=== PATIENT | female | born 1985 | race Caucasian/White ===

== ENCOUNTER 2024-06-11 10:46 | Outpatient (AMB) | payer OTHER, SELFPAY ==
--- NOTE | 2024-06-11 10:48 | A.OFFPC_ITS ---
Vital Signs 06/11/24 11:01 Height 5 ft 5.35 in Weight 195 lb BMI 32.1 BP 104/68 Blood Pressure Location Rt brachial Position Sitting Respiration 14 Pulse 84 Pulse Source Pulse Oximeter Temp 98.4 F Temp Source Oral Pulse Oximetry (%) 98 Oxygen Delivery Method Room Air Intake Visit Reasons: Est care/ med refill Intake Note: New patient visit Entry Level Programmer Required: No Allergies Sulfa (Sulfonamide Antibiotics) Allergy (Unknown, Verified 06/11/24 10:53) Hives Tobacco use date assessed: 06/11/24 Dental Screening Dental Screen Date: 06/11/24 Did you have a dental visit in the last 12 months?: Yes Did you have a dental problem in the last 6 months where you did not have access to dental care?: No Was dental information given to patient?: Patient declined HPI HPI Comments History of Present Illness Details This is a 39-year-old female with a past medical history of anxiety, ADHD, endometriosis, skin cancer and iron-deficiency anemia presenting to [facility] care. Patient is in the , and she has not had a civilian primary care provider for many years. She relocated here with her 2 children and in January of this year from the . Her mother lives in [place]. Anxiety is treated with 10 mg of Lexapro. This was started when she was in the . She was having panic attacks. She has some occasionally now. She says they were concerned she may also have ADHD, but she was not put on stimulants because she was experiencing heart palpitations. She ended up seeing a inspector filters and had what sounds like extensive testing including a monitoring coordinator and a cardiac MRI. She was told there was some premature beats, but otherwise she was okay. She ended up changing how she 8, and her palpitations pretty much resolved. Once the palpitations resolved they were thinking about tapering off Lexapro and starting medication for ADHD, but she is not sure she wants to stop Lexapro. Denies depression. She takes iron every other day. She will get her flu vaccine with her kids. Her Tdap vaccine is up-to-date given during , and her daughter is 8 years old. She is frustrated by her weight. Admits that her diet needs work. She may want to see a dietitian. No known history of thyroid issues. She is exercising. She is not interested in weight loss medication. Patient had skin cancer removed from her right leg. She says it was not melanoma, but she has a strong family history of melanoma. She does not remember if it was a BCC or SCC. She needs a referral to Dermatology. ROS: Constitutional: No unexplained weight loss, fever, chills, fatigue or night sweats. Eyes: No vision changes, blurry vision, double vision, eye pain, eye redness, eye discharge. ENT: No hearing loss, sneezing, congestion, runny nose or sore throat. Respiratory: No shortness of breath, cough or sputum production. Cardiovascular: No chest pain, chest pressure or chest discomfort. No palpitations or pedal edema. Gastrointestinal: No anorexia, nausea, vomiting or diarrhea. No abdominal pain or blood in stool. Genitourinary: No dysuria, hematuria, urinary frequency. Neurologic: No headache, dizziness, syncope, unilateral weakness, ataxia, numbness or tingling in the extremities. Musculoskeletal: No muscle pain, back pain, joint pain or swelling. Hematologic/Lymphatics: No bleeding or bruising. No painful lymph nodes. Skin: No rash or itching. Endocrine: No cold or heat intolerance. No polyuria or polydipsia. Psychiatric: see HPI Physical exam: Constitutional: Alert, in no distress. Head: Normocephalic. Eyes: Pupils are equal, round and reactive to light. Extraocular muscles intact. Ear, Nose and Throat: Canals clear. TMs normal. Normal nasal mucosa. No nasal discharge. No oral lesions. Neck: Supple, Full range of motion. No lymphadenopathy. No palpable thyroid masses. Respiratory: Clear to auscultation. Cardiovascular: S1 S2 regular. No murmurs. Gastrointestinal: Abdomen soft, non-tender, non-distended. Normal bowel sounds. No palpable masses. Neurologic: No focal neurological deficits. Symmetric patellar reflexes. Moves all extremities spontaneously. Sensation intact bilaterally. Skin: No rashes .. Musculoskeletal: No gross deformities. Normal range of motion. Extremities: Warm and well perfused. No clubbing, cyanosis or edema. 3+ peripheral pulses bilaterally. Psychiatric: Normal mood and affect [facility] Medical History (Updated 06/11/24 @ 11:44 by SILVIANO Velásquez) Iron deficiency Family history of melanoma Anxiety Endometriosis Cancer of skin of right leg Heart palpitations ADHD Surgical History (Updated 06/11/24 @ 11:40 by SILVIANO Velásquez) [place] teeth removed H/O removal of cyst Family History (Updated 06/11/24 @ 10:57 by Candie An CMA) Mother ADHD Anxiety Skin cancer Maternal Aunt Skin cancer Father Type 2 diabetes mellitus Gout Other FH: mental illness Social History Housing: House Patient Tobacco Use Status: Never used Tobacco e-Cigarette/Vaping Use: Never Used Second Hand Smoke Exposure: No service: No Current occupational status: employed 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 1. Little interest or pleasure in doing things: not at all 2. Feeling down, depressed, or hopeless: not at all 3. Trouble falling or staying asleep, or sleeping too much: not at all 4. Feeling tired or having little energy: several days 5. Poor appetite or overeating: not at all 6. Feeling bad about yourself - or that you are a failure or have let yourself or your family down: not at all 7. Trouble concentrating on things, such as reading the newspaper or watching television: not at all 8. Moving or speaking so slowly that other people could have noticed. Or the opposite - being so fidgety or restless that you have been moving around a lot more than usual: not at all 9. Thoughts that you would be better off or of hurting yourself in some way: not at all Total score: 1 Depression Screening Interpretation: Negative Depression Screening Done: Yes Source: Developed by Drs. Chato Gonzales, Nkechi Valente, Garrett Paredes and colleagues, with an educational deny from [employer]. Thrive Questionnaire Date Thrive assessed: 06/11/24 I am a: Patient What is your living situation today?: I have a steady place to live Within the past 12 months, did the food you bought not last and you didn't have the money to get more?: Never true Within the past 12 months, did you worry whether your food would run out before you got money to buy more?: Never true Do you have trouble paying for medicines?: No Do you have trouble getting transportation to medical appointments?: No Do you have trouble paying your heating and electricity bill?: No Do you have trouble taking care of your child, family member or friend?: No Do you have trouble with day-to-day activities such as bathing, preparing meals, shopping, managing finances, etc.?: No Are you currently unemployed and looking for a job?: No Are you interested in more education?: No Please select the resources that you would like help with: None Currently or been in a relationship where the following occur: No concerns reported THRIVE Score: 0 AUDIT C Alcohol Use Questionnaire (AUDIT-C) 1. How often do you have a drink containing alcohol?: Monthly or less 2. How many drinks containing alcohol do you have on a typical day when you are drinking?: 1 or 2 3. How often do you have six or more drinks on one occasion?: Never Total Score: 1 JESSI-7 AMB Questionnaire JESSI-7 Feeling nervous, anxious, or on edge: 0 = Not at all Not being able to stop or control worryin = Not at all Worrying too much about different things: 0 = Not at all Trouble relaxin = Not at all Being so restless that it is hard to sit still: 0 = Not at all Feeling afraid as if something awful might happen: 0 = Not at all Source: Developed by Drs. Chato Gonzales, Nkechi Valente, Garrett Paredes and colleagues, with an educational deny from [employer]. Physical exam (Primary Care) Vital Signs: Last Vital Signs Temp 98.4 F 06/11/24 11:01 Pulse 84 06/11/24 11:01 Resp 14 06/11/24 11:01 BP 104/68 06/11/24 11:01 Pulse Ox 98 06/11/24 11:01 Oxygen Delivery Method Room Air 06/11/24 11:01 BMI result Body Mass Index 32.1 Tobacco/Smoking Status: Tobacco use Status Tobacco use date assessed 06/11/24 06/11/24 10:50 Patient Tobacco Use Status Never used Tobacco 06/11/24 10:50 e-Cigarette/Vaping Use Never Used 06/11/24 10:50 PHQ-9: PHQ-9 Score PHQ-9: Total score 1 06/11/24 11:32 Depression Screening Interpretation: Negative Thrive Assessment: Date of Thrive Assessment Date Thrive assessed 06/11/24 06/11/24 10:50 Currently or been in a relationship where the following occur: No concerns reported Coding Level of Care Code New Pt Prev Care 18-39yr([id number] Diagnoses Routine physical examination Z00.00 Cancer of skin of right leg C44.702 Anxiety F41.9 ADHD F90.9 Class 1 obesity E66.811 Assessment & Plan Assessment & Plan (1) Routine physical examination: Code(s): Z00.00 - Encounter for general adult medical examination without abnormal findings Plan: Patient is seen today for a routine physical. As part of this visit we reviewed the following issues, which are considered and essential part of preventative health in this age group: - Breast Cancer screening - Annual Dental Office Manager exam - referred - Blood pressure screening - Cholesterol screening - Osteoporosis prevention including calcium/vitamin D intake, weight bearing exercise & smoking cessation - Nutritional and exercise counseling - Counseling of injury prevention including fire prevention, smoke alarms and seat belt usage - Screening for depression - Education about skin cancer - Recommendations about immunizations - Recommendation of an eye exam - Screening for substance abuse (2) Cancer of skin of right leg: Code(s): C44.702 - Unspecified malignant neoplasm of skin of right lower limb, including hip Category: Medical Plan: Refer to dermatology. Patient should have regular skin exams given family history of melanoma and personal history of skin cancer. (3) Anxiety: Code(s): F41.9 - Anxiety disorder, unspecified Category: Medical Plan: Continue Lexapro. Refer to Psychiatry did discuss med management and possibility of treating potential ADHD. (4) ADHD: Code(s): F90.9 - Attention-deficit hyperactivity disorder, unspecified type Category: Medical (5) Class 1 obesity: Code(s): E66.811 - Obesity, class 1 Plan: Lifestyle modifications reviewed. Check TSH. She is interested in dietitian consult but would like labs reviewed prior to referral. Plan Follow up to be determined based on results. Orders: Orders Lipid Panel Today E78.5 - Hyperlipidemia, unspecified, F41.9 - Anxiety disorder, unspecified, F90.9 - Attention-deficit hyperactivity disorder, unspecified type, Z13.6 - Encounter for screening for cardiovascular disorders Comprehensive Met. Panel Today F41.9 - Anxiety disorder, unspecified, F90.9 - Attention-deficit hyperactivity disorder, unspecified type, Z13.6 - Encounter for screening for cardiovascular disorders Complete Blood Count no Diff Today F41.9 - Anxiety disorder, unspecified, F90.9 - Attention-deficit hyperactivity disorder, unspecified type, Z13.6 - Encounter for screening for cardiovascular disorders TSH reflex Free T4 Today F41.9 - Anxiety disorder, unspecified, F90.9 - Attention-deficit hyperactivity disorder, unspecified type, Z13.6 - Encounter for screening for cardiovascular disorders IRON PROFILE Today E61.1 - Iron deficiency Ferritin Today E61.1 - Iron deficiency Referrals Dermatology Referral C44.702 - Unspecified malignant neoplasm of skin of right lower limb, including hip, Z80.8 - Family history of malignant neoplasm of other organs or systems Psychiatry Referral F41.9 - Anxiety disorder, unspecified, F90.9 - Attention- deficit hyperactivity disorder, unspecified type 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
[2024-06-11 11:01] VITALS: BP 104/68; PULSE 84; RESP 14; TEMP 36.9; O2SAT 98; BMI 32.1
== END 2024-06-11 11:59 | disposition home or self-care (01) ==
PROVIDERS: PCP Physician Assistant Medical; Visit Provider Physician Assistant Medical
DX: Z00.00 Encounter for general adult medical examination without abnormal findings (principal); C44.702 Unspecified malignant neoplasm of skin of right lower limb, including hip; E66.811 Obesity, class 1; Z68.32 Body mass index [BMI] 32.0-32.9, adult; F41.9 Anxiety disorder, unspecified; F90.9 Attention-deficit hyperactivity disorder, unspecified type

== ENCOUNTER → 2024-06-11 10:46 | Outpatient (BNVA) | payer OTHER, SELFPAY | PROVIDERS: PCP Physician Assistant Medical; Visit Provider Physician Assistant Medical ==

== ENCOUNTER 2025-03-20 08:34 | Outpatient (AMB) | payer OTHER, SELFPAY ==
--- OUTSIDE RECORDS SUMMARY | 2025-03-20 08:46 | XMS_ITS | Continuity of Care Document ---
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 It does not include entries that were removed or entered in error. Problem Status Onset Date Problem Type Date of Resolution Comments Source Other viral diseases complicating , unspecified trimester Inactive 05/25/20 16 Condition DoD NORMAL ROUTINE HISTORY AND PHYSICAL - Inactive 01/04/20 13 Condition DoD Outpatient Physician Consultation Inactive 06/05/20 12 Condition DoD SKIN NEOPLASM UNCERTAIN BEHAVIOR Inactive 03/23/20 11 Condition DoD visit for: contraceptive surveillance pill Inactive 02/09/20 06 Condition DoD Patient Education - Proper Use Of Medications Inactive 01/26/[address] MOYA TO ADVISE DoD Palpitations Active 08/19/18 99 Condition DoD Anemia Active Condition 0633C-48t h [facility] Anxiety Active Condition 0633C-48t h [facility] Bicornuate uterus Active Condition 0633 C-48t h [facility] Genital herpes simplex Active Condition 0633C-48t h [facility] Bicornate uterus Active Condition DoD 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 Condition DoD anxiety Active Condition DoD HEMORRHOIDS INTERNAL Active Condition DoD HERPES SIMPLEX Inactive Condition DoD ANEMIA Active Condition DoD PREG COMPLICATIONS: ANTEPARTUM COND OR PRIOR COMP DELIVERY Inactive Condition DoD COMPLICATIONS: ANEMIA Active Condition DoD DECR MOVE AFFECTING CARE OF MOTHER - ANTEPARTUM CONDIT Inactive Condition DoD MATERNAL CONDITION AFFECTING FETUS / Active Condition DoD CONGENITAL UTERINE ABNORMALITY (OBSTETRIC) - ANTEPARTUM COND Active Condition DoD DYSMENORRHEA Active Condition DoD CONGENITAL ABNORMALITY OF UTERUS BICORNUATE PARTIAL Active Condition DoD visit for: administrative purpose Inactive Condition DoD FEMALE INFERTILITY Active Condition DoD WARTS PLANTAR Active Condition DoD Inquiry And Counseling: Contraceptive Practices Active Condition DoD ROUTINE GYNECOLOGICAL EXAM WITH CERVICAL PAP SMEAR Inactive Condition DoD Cervix Sample Taken For Pap Smear Active Condition DoD visit for: screening exam venereal disease Inactive Condition DoD Cervical Pap Smear Inactive Condition Do D DYSPAREUNIA Active Condition DoD Laboratory Studies Active Condition S CHEDULED APPT, [facility]/NIRALI GODINEZ [email or web address] 15 min early PBO DoD Medications Combined list of outpatient medications from Department of Defense and Veterans Affairs facilities.Medications provided include 1) outpatient medications from the last 15 months, and 2) patient-reported medications. Medication Details Route Status Patient Instructions Prescription Expires Prescription Number Last Dispense Date Ordering Provider Order Date Order Qty Source escitalopra m 10 mg oral tablet 1 tab(s), Oral, Daily, # 90 tab(s), 1 total refill(s ), Maintena nce, Pharmacy : [facility] Oral (given by mouth) Ordered 4 2023 90.0 0633C-4 8th [facility] escitalopra m 10 mg tablet See dose instruct ions in comments , # 120 EA, 1 total refill(s ), Acute Complet ed 11/23/2023 3 2023 120.0 Ambulat ory Pharmac y ferrous sulfate (iron sulfate) Oral, 0 total refill(s ), Maintena nce Oral (given by mouth) Ordered 2023 0633C-4 8th [facility] ketoconazol e 2% topical cream RUB GENTLY INTO THE AFFECTED AREA(S) OF RASH 2 TIMES PER DAY UNTIL RESOLVED , # 30 g, 2 total refill(s ), Acute Complet ed 09/19/2023 3 2023 30.0 Ambulat ory Pharmac y Multivitami n oral gum 0 total refill(s ), Maintena nce Ordered 2023 0633C-4 8th [facility] Allergies, Adverse Reactions, Alerts Combined list of allergies from Department of Defense and Veterans Affairs facilities. It does not include entries that were removed or entered in error. Substance Category Reaction Severity Reaction type Status Date Reported Comments Source sulfa drugs Propensity to adverse reactions to drug Unknown Active 6 HIVES Unknown Organization [facility] Drug allergy (disorder) Unknown active 6 [facility] Immunizations Combined list of available immunizations from the Department of Defense and Veterans Affairs facilities. 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 Source influenza virus vaccine, inactivated 2022 ELIAS Beltre lucas, left (delt oid) [id number] 150 Seqirus, A Goodybag complet ed influenza virus vaccine, inactivat ed 06/29/23 Given 0633C-4 8th [facility] influenza, injectable, quadrivalent- pf 2021 zzLef t Arm [id number] 150 GlaxoSmithKli ne complet ed influenza , injectabl e, quadrival ent-pf 06/25/22 Given Ambulat ory Pharmac y Influenza, injectable, quadrivalent, preservative free 1 2021 Unknown, Provider [id number] 150 SmithKline (SKB) complet ed Influenza , injectabl e, quadrival ent, preservat erwin free DoD influenza, injectable, quadrivalent- pf 2021 griseldazSukh Arm [id number] 150 GlaxoSmithKli ne complet ed influenza , injectabl e, quadrival ent-pf 11/16/21 Given Ambulat ory Pharmac y Influenza, injectable, quadrivalent, preservative free 1 2021 Unknown, Provider [id number] 150 SmithKline (SKB) complet ed Influenza , injectabl e, quadrival ent, preservat erwin free DoD COVID-19, mRNA, LNP-S, PF, 30 mcg/0.3 mL dose 2020 [employer] [place] (PFR) Not Given COVID-19, mRNA, LNP-S, PF, 30 mcg/0.3 mL dose DoD COVID-19, mRNA, LNP-S, PF, 30 mcg/0.3 mL dose 2020 ALAN, () Not Given COVID-19, mRNA, LNP-S, PF, 30 mcg/0.3 mL dose DoD influenza, seasonal, injectable-pf 2015 zzLef t Arm [id number] 140 Seqirus complet ed influenza , seasonal, injectabl e-pf 05/31/16 Given Ambulat ory Pharmac y Influenza, seasonal, injectable, preservative free 1 2015 Unknown, Provider [id number] 140 Seqirus (SEQ) complet ed Influenza , seasonal, injectabl e, preservat erwin free DoD tetanus, diphtheria, acellular pertu is 2015 Michaela ht Arm [id number] 115 [facility] ed tetanus, diphtheri a, acellular pertussis 04/27/16 Given Ambulat ory Pharmac y tetanus toxoid, reduced diphtheria toxoid, and acellular pertu is vaccine, adsorbed 1 2015 Unknown, Provider [id number] 115 [facility] (SKB) complet ed tetanus toxoid, reduced diphtheri a toxoid, and acellular pertussis vaccine, adsorbed DoD hepatitis B pediatric/ado lescent 2000 [id number] 08 Merck & Company Inc complet ed hepatitis B pediatric /adolesce nt 10/11/00 Given Ambulat ory Pharmac y hepatitis B vaccine, pediatric or pediatric/ado lescent dosage 3 2000 Unknown, Provider [id number] 08 Merck (MSD) complet ed hepatitis B vaccine, pediatric or pediatric /adolesce nt dosage DoD hepatitis B pediatric/ado lescent 1999 [id number] 08 [employer]ck & Company Inc complet ed hepatitis B pediatric /adolesce nt 05/12/00 Given Ambulat ory Pharmac y hepatitis B vaccine, pediatric or pediatric/ado lescent dosage 2 1999 Unknown, Provider [id number] 08 Merck (MSD) complet ed hepatitis B vaccine, pediatric or pediatric /adolesce nt dosage DoD hepatitis B pediatric/ado lescent 1999 [id number] 08 [employer]ck & Company Inc complet ed hepatitis B pediatric /adolesce nt 04/01/00 Given Ambulat ory Pharmac y tetanus-dipht h toxoids (Td) adult/adol 1999 [id number] 09 [facility] complet ed tetanus-d iphth toxoids (Td) adult/ado l 04/01/00 Given Ambulat ory Pharmac y hepatitis B vaccine, pediatric or pediatric/ado lescent dosage 1 1999 Unknown, Provider [id number] 08 Merck (MSD) complet ed hepatitis B vaccine, pediatric or pediatric /adolesce nt dosage DoD tetanus and diphtheria toxoids, adsorbed, preservative free, for adult use (2 Lf of tetanus toxoid and 2 Lf of diphtheria toxoid) 1 1999 Unknown, Provider [id number] 09 Gregoria (GUILLE) [facility] ed tetanus and diphtheri a toxoids, adsorbed, preservat erwin free, for adult use (2 Lf of tetanus toxoid and 2 Lf of diphtheri a toxoid) DoD Results Combined list of recent chemistry, hematology and other laboratory results from Department of Defense and Veterans Affairs, ranging from 15 months to all on record, depending upon the facility. Order Name Results Value Reference Range Date Interpretation Specimen Comments Source AP Specimens HPV Genotype 16 Negative 3 (11/08/22 4:48 AM) 11/08 N Interpretiv e Data: HPV GENOTYPE 16 Negative: NEGATIVE for HPV DNA genotype 16 DNA. HPV GENOTYPE 16 Positive: POSITIVE for HPV genotype 16 DNA. Limitations : A negative result does NOT preclude the presence of HPV infection because results depend on adequate specimen collection, absence of inhibitors and sufficient DNA to be detected. Correlation with cytologic findings is recommended as applicable. Questions about process or methodology contact Molecular Department at or [phone]. Unknown Organizat ion AP Specimens HPV Genotype 18 Negative 1 (11/08/22 4:48 AM) 11/08 N Interpretiv e Data: HPV GENOTYPE 18 Negative: NEGATIVE for HPV genotype 18 DNA. HPV GENOTYPE 18 Positive: POSITIVE for HPV genotype 18 DNA. Limitations : A negative result does NOT preclude the presence of HPV infection because results depend on adequate specimen collection, absence of inhibitors and sufficient DNA to be detected. Correlation with cytologic findings is recommended as applicable. Questions about process or methodology contact Molecular Department at [phone] or [phone]. Unknown Organizat ion AP Specimens HPV Typing High Risk Negative 2 (11/08/22 4:48 AM) 11/08 N Interpretiv e Data: HPV Typing High Risk Negative: NEGATIVE for concurrentl y detecting the rest of the 12 high risk types HPV DNA (31,33,35,3 9,45,51,52, 56,58,59,66 and 68) without differentia tion. HPV Typing High Risk Positive: POSITIVE for concurrentl y detecting the rest of the 12 high risk types HPV DNA (31,33,35,3 9,45,51,52, 56,58,59,66 and 68) without differentia tion. Limitations : A negative result does NOT preclude the presence of HPV infection because results depend on adequate specimen collection, absence of inhibitors and sufficient DNA to be detected. Correlation with cytologic findings is recommended as applicable. Questions about process or methodology contact Molecular Department at or [phone]. 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 [id number] 30 Cytology Gynecolo gic Report Patient: DAHIANA PEPPER Specimen #: [id number] [facility] ID:: [id number] [facility]: [id number] Taken: 3 19:00 /Age: 8 1985 (Age: 37) Received : 3 08:46 Physicia n(s:): SONALI Melendez Reported : 3 Specimen (s) Received Taken Rec Thin Prep - Cervical w/o reflex HPV 3 19:00 3 08:46 Final Diagnosi s Thin Prep - Cervical w/o reflex HPV: Satisfac tory for evaluati on; endocerv ical componen t present. Negative for intraepi thelial lesion or malignan cy. This Pap test was evaluate d with the assistan ce of the Thin Prep Imaging System. Elect ronicall y Signed by Russell Kim Clinical Diagnosi s and History DMIS-ID: [id number] Ordering Provider : SONALI BARBA Prior History Signed Out Specimen # Interpre tation 11/22/19 18 [id number] NEGATIVE 05/21/20 14 [id number] NEGATIVE 03/04/20 11 [id number] NEGATIVE 02/15/20 06 [id number] NEGATIVE 05/06/20 04 [id number] NEGATIVE 1 CPT Codes: A; 39027 The Pap test is a screenin g test for precurso rs of squamous cell carcinom a with an irreduci ble false negative rate of around 5%. It is not designed to detect glandula r lesions. A negative test does not ensure that no disease is present. 11/[address] [place] [address] Encounters Combined list of: 1) Encounters from Department of Veterans Affairs facilities going backup to the last 18 months, not all VA inpatient encounters are included; 2) Encounters from the Department of Defense facilities going backup to 280 months. Location Location Details Encounter Type Encounter Number Reason For Visit Attending Provider ADM Date DC Date Status Disposition Source [facility] TELE CONSULT [id number] med reactio n LAM MOYA N 01/24 [facility]) [facility]) TELE CONSULT [id number] MED ISSUES NITA, LAM N 01/25 [employer] [facility]) [facility]) OUTPATIENT [id number] VANGIE Guzman 02/08 Released w/o Limitations [facility] JESS Daniel([facility]) OUTPATIENT [id number] annual pap ROLLY PATEL A 07/10 Released w/o Limitations [facility]) OUTPATIENT [id number] Poss Bone Spur/Pa lnters wart??? GOOD REY 02/12 Released w/o Limitations [employer]([facility]) [employer]([facility]) OUTPATIENT [id number] Pap...W GOOD HALL 02/25 Released w/o Limitations [employer]([facility]) [employer] [facility] [employer]([facility]) OUTPATIENT [id number] f/up cryothe rapy... GOOD Nash 03/23 Released w/o Limitations [employer] [facility]) [employer]([facility]) OUTPATIENT [id number] f/u for wart on foot BENTLEY REYDavid Raza 04/09 Released w/o Limitations [facility]) TELE CONSULT [id number] DERM RESULTS APR 01 GOOD RE[facility] Luz Marina 04/15 [employer] [facility]) OUTPATIENT [id number] f/u freeze wart... [facility] BENTLEY REYDavid Raza 04/20 Released w/o Limitations [employer]([facility] tetrics/G ynecology Cl Eg) OUTPATIENT [id number] Female inferti HAL Singh 05/27 Released w/o Limitations [facility](O bstetri cs/Gyne cology Cl [facility]) [facility](Obs tetrics/G ynecology Cl Eg) TELE CONSULT [id number] pt nds appt to get U/S of Uterus on cycle now STEVE VILLAGRAN 06/09 Referred for Appointment [facility] bstetri cs/Gyne cology Cl [facility]) [facility](Obs tetrics/G ynecology Cl Eg) TELE CONSULT [id number] HAL VILLELA 06/17 [facility](O bstetri cs/Gyne cology Cl Eg) [facility](Obs tetrics/G ynecology Cl Eg) TELE CONSULT [id number] Notes Entered by: MARC PERRIN 11 Jan 2012 0740 ------- ------- ------- ------- -- Reg: Pt. wouldli ke to talk to you about her Procedu re? HAL VILLELA 01/10 [facility](O bstetri cs/Gyne cology Cl [facility]) [facility](Obs tetrics/G ynecology Cl Eg) TELE CONSULT [id number] Notes Entered by: ANDREA HENDERSON 06 Mar 2012 1314 ------- ------- ------- ------- -- pt 2wks..s tarted cycle earlier ..not sure if needs appt... SAWYER KIRKLAND 03/06 [facility](O bstetri cs/Gyne cology Cl Eg) [address] [place] [address] Group(Obs tetrics/G ynecology Cl Eg) OUTPATIENT [id number] Follow up HAL Hunt 04/03 Released w/o Limitations [address] [place] [address] Group(O bstetri cs/Gyne cology Cl Eg) [facility](Obs tetrics/G ynecology Cl Eg) TELE CONSULT [id number] Notes Entered by: LUIS RODRÍGUEZ I 05 Apr 2012 0725 ------- ------- ------- ------- -- pcm kiing/r eqeust appt /positi ve pregnan cy test SAWYER KIRKLAND 04/[address] [place] [address] Group(O bstetri cs/Gyne cology Cl Eg) [address] [place] [address](Obs tetrics/G ynecology Cl Eg) TELE CONSULT [id number] Notes Entered by: Junior MORA 06 Apr 2012 1115 ------- ------- ------- ------- -- obgyn/h cg results SAWYER KIRKLAND 04/[address] [place] [address](O bstetri cs/Gyne cology Cl Eg) [address] [place] [address](Obs tetrics/G ynecology Cl Eg) OUTPATIENT [id number] 10wks noJOSEPHINE Hernandes 05/11 Released w/o Limitations [address] [place] [address](O bstetri cs/Gyne cology Cl Eg) [address] [place] [address] Group(Obs tetrics/G ynecology Cl Eg) TELE CONSULT [id number] Notes Entered by: CHEN HARRISON 05 Jun 2012 1140 ------- ------- ------- ------- -- NETWORK RESULT - OB 06/02 JOSEPHINE HERNANDEZ 06/05 [facility](O bstetri cs/Gyne cology Cl Eg) [facility](Obs tetrics/G ynecology Cl Eg) TELE CONSULT [id number] Notes Entered by: Marely WADE 27 Jun 2012 1445 ------- ------- ------- ------- -- NETWORK RESULTS - OB NOTE 07/03 JOSEPHINE HERNANDEZ 06/27 [facility](O bstetri cs/Gyne cology Cl Eg) [facility](Obs tetrics/G ynecology Cl Eg) OUTPATIENT [id number] 15WKS OB RESCHED GRETEL BROTHERS 06/28 Released w/o Limitations [facility](O bstetri cs/Gyne cology Cl Eg) [facility](Obs tetrics/G ynecology Cl Eg) TELE CONSULT [id number] Notes Entered by: Marely WADE 30 Jun 2012 1245 ------- ------- ------- ------- -- NETWORK RESULTS - OB US 07/03 JOSEPHINE HERNANDEZ 06/30 [facility](O bstetri cs/Gyne cology Cl Eg) [facility](Obs tetrics/G ynecology Cl Eg) OUTPATIENT [id number] 18wk cx FARSHAD Aviles 07/12 Released w/o Limitations [facility](O bstetri cs/Gyne cology Cl Eg) [facility](Obs tetrics/G ynecology Cl Eg) TELE CONSULT [id number] Notes Entered by: CHEN HARRISON 26 Jul 2012 1106 ------- ------- ------- ------- -- NETWORK RESULT - OB 07/03 JOSEPHINE HERNANDEZ 07/26 [facility](O bstetri cs/Gyne cology Cl Eg) [facility](Obs tetrics/G ynecology Cl Eg) OUTPATIENT [id number] 21WKS HR OB APPT-CE RVICAL LENGTH PER LING PICHARDO 08/03 Released w/o Limitations [facility](O bstetri cs/Gyne cology Cl Eg) [facility]/ [facility]) TELE CONSULT [id number] Notes Entered by: PER HEDRICK 30 Aug 2012 1548 ------- ------- ------- ------- -- Decreas ed ROSALVA Diaz 08/30 [facility](O b/[facility]) [facility](Obs tetrics/G ynecology Cl Eg) TELE CONSULT [id number] Notes Entered by: CHEN HARRISON 31 Aug 2012 0716 ------- ------- ------- ------- -- NETWORK RESULT - OB 08/02 JOSEPHINE HERNANDEZ 08/31 [facility](O bstetri cs/Gyne cology Cl Eg) [facility](Obs tetrics/G ynecology Cl Eg) OUTPATIENT [id number] 24WKS HR OB APPT EMA ERWIN 08/31 Released w/o Limitations [facility](O bstetri cs/Gyne cology Cl Eg) [facility](Obs tetrics/G ynecology Cl Eg) OUTPATIENT [id number] 28 wks COB EMA ERWIN 09/21 Released w/o Limitations [facility](O bstetri cs/Gyne cology Cl Eg) [facility](Obs tetrics/G ynecology Cl Eg) TELE CONSULT [id number] Notes Entered by: CHEN HARRISON 03 Oct 2012 0751 ------- ------- ------- ------- -- NETWORK RESULT - OB 10/04 JOSEPHINE HERNANDEZ 10/03 [facility](O bstetri cs/Gyne cology Cl Eg) [facility](Obs tetrics/G ynecology Cl Eg) OUTPATIENT [id number] 32WKS HR OB APPT EMA ERWIN 10/12 Released w/o Limitations [employer] [facility](O bstetri cs/Gyne cology Cl Eg) [facility] yesi Residency Hot) TELE CONSULT [id number] Notes Entered by: JOY BABCOCKVINCE SNOW Kacie 17 Oct 2012 1322 ------- ------- ------- ------- -- ABRAHAM Coppola 10/17 [facility](F amily Residen cy Hot) [facility](Obs tetrics/G ynecology Cl Eg) OUTPATIENT [id number] 36WKS HROB PER CHANA GALAVIZ 11/16 Released w/o Limitations [facility](O bstetri cs/Gyne cology Cl Eg) [facility] DIRECT TO [facility] FROM OTHER THAN ER OR [facility]U [id number] ROSALVA PONCE 11/21 DISCHARGED HOME [facility](Obs tetrics/G ynecology Cl Eg) OUTPATIENT [id number] 6 WKS PP..LEENA GALICIA GRETEL Kacie 01/03 Released w/o Limitations [facility](O bstetri cs/Gyne cology Cl Eg) [facility] yesi Residency [facility]) TELE CONSULT [id number] Notes Entered by: MARYLOU MONAHAN 09 Apr 2014 1035 ------- ------- ------- ------- -- CARRIE CHE 04/09 Referred for Appointment [facility](F amily Residen [facility]) [employer] [facility] [employer](Fam yesi Residency [facility]) OUTPATIENT [id number] PETE OSWALD 04/18 Released w/o Limitations [employer](F amily Residen cy [facility]) [employer]([facility] yesi Residency [facility]) TELE CONSULT [id number] Notes Entered by: Al BENSON 29 Apr 2014 0919 ------- ------- ------- ------- -- LAB RESULTS PETE CLARK 04/29 [facility]) [facility]) OUTPATIENT [id number] f/u PETE CLARK 05/14 Released w/o Limitations [facility]) TELE CONSULT [id number] Notes Entered by: PETE CLARK 23 May 2014 1024 ------- ------- ------- ------- -- Cervica l Cancer Screeni ng Results PETE CLARK 05/23 [facility]) [facility]) TELE CONSULT [id number] 3 Notes Entered by: JUDE CLARK 31 May 2014 1329 ------- ------- ------- ------- -- referal EFRAÍN CHU 05/31 [facility]) [facility]) OUTPATIENT [id number] cough/c hest congest JESSICA Aceves 11/18 Released w/o Limitations [facility]) [facility]) OUTPATIENT [id number] PCM EATON - EAR PAIN LYNN GILMORE 12/02 Released w/o Limitations [facility]) [facility]) OUTPATIENT [id number] KRYSTINA DON 12/24 Released w/o Limitations [facility](F [facility]) [facility](Phy sical Therapy 0024) OUTPATIENT [id number] lummarjango FARSHAD LARA 01/02 Released w/o Limitations [facility](P hysical Therapy 0024) [address] [place] [address](Phy sical Therapy 0024) OUTPATIENT [id number] CHI JARAMILLO Marely 01/06 Released w/o Limitations [facility](P hysical Therapy 0024) [address] [place] [address](Phy sical Therapy 0024) OUTPATIENT [id number] CELIA MENDOZA Junior 01/09 Released w/o Limitations [address] [place] [address](P hysical Therapy 0024) [address] [place] [address]([facility]) OUTPATIENT [id number] back pain LING SANTIAGO 04/16 Released w/o Limitations [address] [place] [address]([facility]) [address] [place] [address]([facility]) TELE CONSULT [id number] Notes Entered by: SILVERIO CHISHOLM 16 Apr 2015 1032 ------- ------- ------- ------- -- Possibl e cyst LING SANTIAGO 04/[address] [place] [address]([facility]) [address] [place] [address]([facility]) TELE CONSULT [id number] Notes Entered by: Alek JARAMILLO 18 Apr 2015 0950 ------- ------- ------- ------- -- BACK STILL HURTS/P CM: Sharon ALMANZAR ALEXANDER C 04/18 [facility]) [address] [place] [address]([facility]) OUTPATIENT [id number] follow up back pain CANDIDA BOWDEN 04/29 Released w/o Limitations [address] [place] [address]([facility]) [address] [place] [address]([facility]) OUTPATIENT [id number] F/U BACK, ABDOMIN AL PAIN, TENDERN ESS AND CRAMPS. SUPPOSE TO HAVE SCRAPPI NG. EFRAÍN ALMANZAR 05/20 Released w/o Limitations [address] [place] [address]([facility]) [address] [place] [address](Obs tetrics/G ynecology Cl Eg) OUTPATIENT [id number] OVARIAN CYST COMPLEX LEFT SHANK NICOLE FREY 06/20 [facility]ased w/o Limitations [facility] bstetri cs/Gyne cology Cl [facility]) [facility]) TELE CONSULT [id number] Notes Entered by: WOLF MEDRANO 26 Jun 2015 0928 ------- ------- ------- ------- -- F/u U/S CANDIDA BOWDEN 06/26 [facility]) [facility]) OUTPATIENT [id number] f/u for back and stomach EFRAÍN ALMANZAR 06/27 Released w/o Limitations [facility]) [facility](Obs tetrics/G ynecology Cl Eg) OUTPATIENT [id number] F/U Ovarian Cyst NICOLE CHAPARRO 07/03 Released w/o Limitations [facility] bstetri cs/Gyne cology [facility]) [facility]) OUTPATIENT [id number] fu appt/lo w back pain RODRIGUEZLIZETTE BABCOCK James 10/15 Released w/o Limitations [facility]) [facility]) TELE CONSULT [id number] Notes Entered by: SILVERIO CHISHOLM 20 Oct 2015 1338 ------- ------- ------- ------- -- Pregnan cy test LUIS ROBIN Referred- [facility] Department [facility]) [facility](Obs tetrics/G ynecology Cl Eg) TELE CONSULT [id number] Notes Entered by: STEVE VILLAGRAN 22 Oct 2015 0951 ------- ------- ------- ------- -- Lab results STEVE VILLAGRAN 10/21 Other Not Elsewhere Classified [facility](O bstetri cs/Gyne cology Cl Eg) [employer](Obs tetrics/G ynecology Cl Eg) OUTPATIENT [id number] viabili ty scan, f/u ER visit 5weeks NICOLE CHAPARRO 10/28 Released w/o Limitations [employer](O bstetri cs/Gyne cology Cl Eg) [employer](Obs tetrics/G ynecology Cl Eg) OUTPATIENT [id number] Notes Entered by: MICHELLE ELAM 13 Nov 2015 1350 ------- ------- ------- ------- -- nurse intake ROCIO HOYT 11/12 Released w/o Limitations [employer](O bstetri cs/Gyne cology Cl Eg) [employer](Obs tetrics/G ynecology Cl Eg) TELE CONSULT [id number] Notes Entered by: PARVEZ HOYT 24 Nov 2015 1615 ------- ------- ------- ------- -- NOB Nurse intake follow- up ROCIO HOYT 11/23 Released w/o Limitations [employer](O bstetri cs/Gyne cology Cl Eg) [employer](Obs tetrics/G ynecology Cl Eg) OUTPATIENT [id number] 10 week..N SAMPSON CARTAGENA 11/26 Released w/o Limitations [employer](O bstetri cs/Gyne cology Cl Eg) [employer](Obs tetrics/G ynecology Cl Eg) OUTPATIENT [id number] WEEKS SAMPSON LINDSEY 01/04 Released w/o Limitations [employer](O bstetri cs/Gyne cology Cl Eg) [employer](Obs tetrics/G ynecology Cl Eg) OUTPATIENT [id number] 20wk JOSEPHINE JOYA 01/28 Released w/o Limitations [employer](O bstetri cs/Gyne cology Cl Eg) [employer](Obs tetrics/G ynecology Cl Eg) OUTPATIENT [id number] 24WKS SAMPSON LINDSEY 02/25 Released w/o Limitations [employer](O bstetri cs/Gyne cology Cl Eg) [facility](Obs tetrics/G ynecology Cl Eg) OUTPATIENT [id number] 28 weeks danielle FRIDAGRETEL Kacie 03/23 Released w/o Limitations [employer](O bstetri cs/Gyne cology Cl Eg) [facility](Obs tetrics/G ynecology Cl Eg) OUTPATIENT [id number] 32 WEEKS DANIELLE SCHMIDT FRANCO K 04/27 Released w/o Limitations [employer](O bstetri cs/Gyne cology Cl Eg) [facility](Obs tetrics/G ynecology Cl Eg) TELE CONSULT [id number] Notes Entered by: MAG SHELLY BONNER 27 Apr 2016 1607 ------- ------- ------- ------- -- Radiolo gy report HEIDI RODRIGUEZ 04/27 [facility] for [facility]ointment [facility] bstetri cs/Gyne cology Cl [facility]) [facility](Obs tetrics/G ynecology Cl Eg) TELE CONSULT [id number] Notes Entered by: Alek TREADWELL 30 Apr 2016 0956 ------- ------- ------- ------- -- NETWORK RESULTS - 05/07 SAMPSON BARRY 04/30 [facility] bstetri cs/Gyne cology Cl [facility]) [facility](Obs tetrics/G ynecology Cl Eg) TELE CONSULT [id number] Notes Entered by: MIKAYLA RAYMOND 30 Apr 2016 1355 ------- ------- ------- ------- -- NST inquiry HEIDI RODRIGUEZ 04/30 [facility] for [facility]ointment [facility] bstetri cs/Gyne cology Cl Eg) [employer](Obs tetrics/G ynecology Cl Eg) OUTPATIENT [id number] 36 weeks ASHTYN COBURN 05/25 Released w/o Limitations [employer](O bstetri cs/Gyne cology Cl Eg) [employer](Obs tetrics/G ynecology Cl Eg) OUTPATIENT [id number] Notes Entered by: MARTI RAPP 25 May 2016 1347 ------- ------- ------- ------- -- rule out pre E THELMA ALEXIS 05/25 Released w/o Limitations [employer] [facility](O bstetri cs/Gyne cology Cl Eg) [facility]) OUTPATIENT [id number] Notes Entered by: MARTI RAPP 26 May 2016 1518 ------- ------- ------- ------- -- BP check FABIAN SPARROW 05/26 Released w/o Limitations [employer](O b/[facility]) [employer](Obs tetrics/G ynecology Cl Eg) OUTPATIENT [id number] walk- in bp CATHERINE DUFFY 05/27 Released w/o Limitations [employer](O bstetri cs/Gyne cology Cl Eg) [facility](Obs tetrics/G ynecology Cl Eg) TELE CONSULT [id number] Notes Entered by: Terell DUFFY 28 May 2016 0817 ------- ------- ------- ------- -- Plan of care CATHERINE DUFFY 05/28 [facility] bstetri cs/Gyne cology Cl [facility]) [facility] DIRECT TO [facility] FROM OTHER THAN ER OR APU [id number] POLI TREVIÑO 05/29 DISCHARGED HOME [facility]) OUTPATIENT [id number] Notes Entered by: Al JARAMILLO 29 May 2016 1418 ------- ------- ------- ------- -- Blood pressur e kelley TERESAENS POLI A 05/29 Released w/o Limitations [employer] [facility](O b/[facility]) [employer](Obs tetrics/G ynecology Cl Eg) TELE CONSULT [id number] Notes Entered by: ART HENDERSON 02 Jun 2016 1413 ------- ------- ------- ------- -- APPT NEEDED- --STEVE JARA 06/02 Referred for Appointment [employer] [facility](O bstetri cs/Gyne cology Cl [facility]) [facility](Obs [facility]s/G ynecology Cl Eg) OUTPATIENT [id number] walk in CATHERINE DUFFY 06/04 Released w/o Limitations [employer](O bstetri cs/Gyne cology Cl Eg) [facility](Obs tetrics/G ynecology Cl Eg) OUTPATIENT [id number] WK PP SAMPSON BARRY 06/10 Released w/o Limitations [employer](O bstetri cs/Gyne cology Cl Eg) [facility](Obs tetrics/G ynecology Cl Eg) TELE CONSULT [id number] Notes Entered by: CRISTIN ERWIN A 18 Jun 2016 1204 ------- ------- ------- ------- -- 6WK PP HARVINDER DELACRUZ 06/18 Other Not Elsewhere Classified [employer] [facility](O bstetri cs/Gyne cology Cl Eg) [employer]([facility]) OUTPATIENT [id number] RASH ON PELVIS/ THIGHS/ BACK MACIE HOLLY 06/21 Released w/o Limitations [employer]([facility]) [employer](Obs tetrics/G ynecology [facility]) OUTPATIENT [id number] 6 weeks PP JHONNYSAMPSON VICTOR CASSI 07/20 Released w/o Limitations [facility](O bstetri cs/Gyne cology [facility]) [facility]) TELE CONSULT [id number] Notes Entered by: Kacie KENDALL 24 Feb 2017 1038 ------- ------- ------- ------- -- EATON / Request ing Renewal of Derm ELLIOTT Ford 02/24 Other Not Elsewhere Classified [facility]) [facility]) TELE CONSULT [id number] Notes Entered by: CHEN HARRISON 21 Mar 2017 0849 ------- ------- ------- ------- -- NETWORK RESULT - DERM 03/07 is in artifac ts and images / HAIMS. RENE SUNSHINE 03/21 [facility]) [facility]) OUTPATIENT [id number] WELL WOMEN/P AP/PHYS ICAL (BACK PAIN and TOENAIL ISSUES) EFRAÍN ALMANZAR 11/11 Released w/o Limitations [facility]) [facility]) TELE CONSULT [id number] Notes Entered by: Sharon ALMANZAR 14 Nov 2017 1826 ------- ------- ------- ------- -- acupunc ture appt EFRAÍN ALMANZAR 11/14 [facility]) [facility]) OUTPATIENT [id number] [facility] MAGI MULLIGAN 11/29 Released w/o Limitations [facility]) [facility]) TELE CONSULT [id number] Notes Entered by: Sharon ALMANZAR 06 Dec 2017 0755 ------- ------- ------- ------- -- F/U PAP and HPV results VERÓNICA CRAWFORD 12/06 [facility]) [facility]) TELE CONSULT [id number] Notes Entered by: Sharon ALMANZAR 12 Dec 2017 1113 ------- ------- ------- ------- -- Nail clip path EFRAÍN ALMANZAR 12/12 [facility]) [facility]) OUTPATIENT [id number] ACUPUNC TURE: anxiety and LBP TUNDE GRECO 12/26 Released w/o Limitations [facility]) [address] [place] [address]([facility]) TELE CONSULT [id number] Notes Entered by: CHEN HARRISON 27 Dec 2017 1330 ------- ------- ------- ------- -- NETWORK RESULT - [facility] 01[place]06 [place] EFRAÍN ALMANZAR 12/27 [facility]) [facility]) TELE CONSULT [id number] Notes Entered by: Sharon ALMANZAR 27 Dec 2017 1338 ------- ------- ------- ------- -- F/U nail Cx results JACQUELINE KRISHNAMURTHY 12/27 Referred for [facility]ointment [facility]) [address] [place] [address]([facility]) TELE CONSULT [id number] Notes Entered by: CHEN HARRISON 01 Feb 2018 1232 ------- ------- ------- ------- -- NETWORK RESULT - [facility] 02/06 [place] SHERI KASPER 02/01 [facility]) [facility]) TELE CONSULT [id number] Notes Entered by: FRANCO HUTTON 10 Nov 2018 1500 ------- ------- ------- ------- -- REFERREYNOLD PATEL 11/10 Other Not Elsewhere Classified [facility]) [facility]) OUTPATIENT [id number] STIVEN GARIBAY 04/13 Released w/o Limitations [facility]) TELE CONSULT [id number] Notes Entered by: FRANCO HUTTON 04 May 2019 0757 ------- ------- ------- ------- -- TRIAGE: LAB REBARBARA JONES 05/04 [facility] for [facility]ointment [facility]) TELE CONSULT [id number] Notes Entered by: STIVEN UGARTE 06 May 2019 1026 ------- ------- ------- ------- -- Lab results JACQUELINE KRISHNAMURTHY 05/06 [facility]erred for [facility]ointment [facility]) OUTPATIENT [id number] possibl e sinus infecti on COLE MARROQUIN 10/22 Released w/o Limitations [employer]([facility]) [facility] Group([facility]) TELE CONSULT [id number] Notes Entered by: Luz Marina WONG 17 Jun 2021 1129 ------- ------- ------- ------- -- req SURENDRA Villatoro 06/17 Released to [employer]([facility]) [facility]) TELE CONSULT [id number] Notes Entered by: JESSICA SHANE I 29 Jun 2021 1345 ------- ------- ------- ------- -- PCM: [place] - dermato logy referra SURENDRA Martin 06/29 Referred for Appointment [employer]([facility]) [facility] Group([facility]) OUTPATIENT [id number] 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 STEFANIE SHOOK 08/18 Released w/o Limitations [facility] Medical Group([facility]) [facility]) TELE CONSULT [id number] Notes Entered by: MANDO GUILLEN 01 Sep 2021 0916 ------- ------- ------- ------- -- PCM; [place] - Lab results MARC JOSHI 09/01 [facility] Group([facility]) [facility] Group([facility]) OUTPATIENT [id number] AWE, Labs to be drawn up 1 week prior JOAN SAMAYOA 09/28 Released w/o Limitations [facility] Medical [facility]) [facility] Medical [facility]) TELE CONSULT [id number] Notes Entered by: JOAN SAMAYOA 01 Oct 2021 1358 ------- ------- ------- ------- -- Results MARC JOSHI 10/01 [facility] Medical [facility]) [facility] Medical Group([facility]) OUTPATIENT [id number] Hyperli pidemia , unspeci fied; mercy [email or web address] HUY YOUNG 11/18 Released w/o Limitations [facility] Medical Group([facility]) [facility] Group([facility]) TELE CONSULT [id number] Notes Entered by: MARY ALICE WHITE 16 Feb 2022 0942 ------- ------- ------- ------- -- Network Results - Cardio- [id number] JOAN SAMAYOA 02/16 [employer]([facility]) [facility] TELE CONSULT [id number] Notes Entered by: XIMENA TINSLEY 17 Mar 2022 1010 ------- ------- ------- ------- -- PCM - [place] - Cyst ANDRES SONG 03/17 [facility] Medical Group([facility]) [facility]) TELE CONSULT [id number] Notes Entered by: MARY ALICE WHITE 25 Mar 2022 0716 ------- ------- ------- ------- -- Network Results -Cardio -29Jul2 2 JOAN SAMAYOA 03/25 [facility] Group([facility]) [facility]) TELE CONSULT [id number] Notes Entered by: Terell HORNER 06 Apr 2022 1137 ------- ------- ------- ------- -- PCM- darling - severe headach es and backach es SHAWN CHINCHILLA 04/06 [facility]) [facility]) OUTPATIENT [id number] *ER F/U bruises on back/he adaches and back pain [id number] JOAN SAMAYOA 04/08 Released w/o Limitations [facility]) [facility] Medical [facility]) OUTPATIENT [id number] OMT-Ryley k pain DENITA ZIEGLER R 04/15 Released w/o Limitations [facility] Group([facility]) [employer]([facility]) OUTPATIENT [id number] evaluat ion of STEFANIE Pathak 04/21 Released w/o Limitations [employer]([facility]) [employer]([facility]) TELE CONSULT [id number] Notes Entered by: OSCAR TURNER 27 Apr 2022 0821 ------- ------- ------- ------- -- PCM - [place] referSURENDRA Reyna 04/27 Referred for Appointment [employer]([facility]) [employer]([facility]) OUTPATIENT [id number] F/U OMT DENITA ZIEGLER 05/03 Released w/o Limitations [facility] Group([facility]) [employer]([facility]) TELE CONSULT [id number] Notes Entered by: NETTIE RHODES OD 04 Jun 2022 1039 ------- ------- ------- ------- -- vane request - OMT MARC Russ 06/04 [facility] Group([facility]) [employer]([facility]) TELE CONSULT [id number] Notes Entered by: CHRISTINE MUJICA 07 Jun 2022 1153 ------- ------- ------- ------- -- ALIE - Yohana - MARC Jaramillo 06/07 [employer]([facility]) [employer]([facility]) OUTPATIENT [id number] OMT DENITA ZIEGLER 06/21 Released w/o Limitations [employer]([facility]) [employer]([facility]) TELE CONSULT [id number] Notes Entered by: JULEE GRAVES 13 Jul 2022 0959 ------- ------- ------- ------- -- Cyst Removal STEFANIE SHOOK 07/13 [employer]([facility]) [employer]([facility]) TELE CONSULT [id number] Notes Entered by: DAILLA GANNON 14 Jul 2022 0925 ------- ------- ------- ------- -- PCM- [place] - Retro MARC Jaramillo 07/14 [employer]([facility]) [employer]([facility]) TELE CONSULT [id number] MITA BRUNO 07/19 [employer]([facility]) [employer]([facility]) OUTPATIENT [id number] Cyst STEFANIE SHOOK 07/20 Released w/o Limitations [employer]([facility]) [employer]([facility]) OUTPATIENT [id number] mood medicat ion [id number] JOAN SAMAYOA 07/26 Released w/o Limitations [employer]([facility]) [employer]([facility]) OUTPATIENT [id number] *zolft causing severe side effects - only took one cap- [id number] JOAN SAMAYOA 07/29 Released w/o Limitations [employer]([facility]) [employer]([facility]) OUTPATIENT [id number] Medicat ion F/u JOAN SAMAYOA 08/31 Released w/o Limitations [employer]([facility]) [employer]([facility]) OUTPATIENT [id number] 2 month follow up - STEFANIE Pathak 09/20 Released w/o Limitations [employer]([facility]) [employer]([facility]) TELE CONSULT [id number] Notes Entered by: JOAN SAMAYOA 28 Sep 2022 1244 ------- ------- ------- ------- -- US result GERALDO JOHNSON L 09/28 [employer]([facility]) [employer]([facility]) OUTPATIENT [id number] punch back STEFANIE SHOOK 10/07 Released w/o Limitations [employer]([facility]) [employer]([facility]) OUTPATIENT [id number] Excessi ve and frequen t menstru ation with regular cycle SONALI THOMAS 10/08 Released w/o Limitations [employer]([facility]) [facility] Group([facility]) TELE CONSULT [id number] Notes Entered by: XIMENA TINSLEY 08 Oct 2022 1551 ------- ------- ------- ------- -- Network Results -Osteo- 10-24De c22 GERALDO JOHNSON L 10/08 [employer]([facility]) [employer]([facility]) TELE CONSULT [id number] Notes Entered by: TATE SHOOK 12 Oct 2022 1624 ------- ------- ------- ------- -- tissue results CELIA MOREJON 10/12 [employer]([facility]) [employer]([facility]) OUTPATIENT [id number] Notes Entered by: ANDRES SONG 18 Oct 2022 0727 ------- ------- ------- ------- -- walk-in - suture removal STEFANIE SHOOK 10/18 Released w/o Limitations [employer]([facility]) [employer]([facility]) OUTPATIENT [id number] PAP/COL PO SONALI THOMAS 10/26 Released w/o Limitations [employer]([facility]) [employer]([facility]) TELE CONSULT [id number] Notes Entered by: LIZZETTE WILSON 01 Dec 2022 1450 ------- ------- ------- ------- -- f/u embx and pap smear results SONALI THOMAS 12/01 [employer]([facility]) [employer]([facility]) OUTPATIENT [id number] Medicat ion F/u JOAN SAMAYOA 12/21 Released w/o Limitations [employer]([facility]) [employer]([facility]) TELE CONSULT [id number] CHRISTINE LARIOS 01/10 [employer]([facility]) [employer]([facility]) OUTPATIENT [id number] possibl y adjust anxiety meds JOAN SAMAYOA 01/13 Released w/o Limitations [employer]([facility]) [employer]([facility]) TELE CONSULT [id number] Notes Entered by: DURAN ROBIN 01 Feb 2023 1323 ------- ------- ------- ------- -- PCM; Yohana - blood work check in MARC JOSHI 02/01 [employer]([facility]) [employer]([facility]) OUTPATIENT [id number] Lump/cy st under L arm x2days, getting larger and causing irritat ion JOAN SAMAYOA 02/03 Released w/o Limitations [employer]([facility]) [facility] Group([facility]) OUTPATIENT [id number] BRENDAN MONTES DE OCA 02/14 Released w/o Limitations [facility]) [facility]) OUTPATIENT [id number] Notes Entered by: BRIANNA RODRÍGUEZ 23 Mar 2023 1442 ------- ------- ------- ------- -- MARIO ALBERTO DIAZ 03/23 Released w/o Limitations [facility] [facility]) [employer]([facility]) OUTPATIENT [id number] *Req to discuss recent heart monitor finding s/resul - [id number] JOAN SAMAYOA 03/28 Released w/o Limitations [employer]([facility]) [employer]([facility]) TELE CONSULT [phone] 3 Notes Entered by: XIMENA TINSLEY 15 Apr 2023 1104 ------- ------- ------- ------- -- Network Results -Psych- [id number] RUSSELL DUFFY 04/15 [employer]([facility]) Procedures Combined list of: 1) Procedures from Department of Veterans Affairs facilities going back up to thelast 18 months, not all VA non-surgical procedures are included; 2) All procedures from the Department of Defense facilities. Procedure Procedure Type Code Date Perfomer Comments Sour e No data available for this section Ambulatory Pharmacy Non-Physician Phone Call To Patient/Provider Brief (5-10min) Non-Physician Phone Call To Patient/Provider Brief (5-10min) [id number] 05/07 JACQUELINE KRISHNAMURTHY [facility] Non-Physician Phone Call To Patient/Provider Brief (5-10min) Non-Physician Phone Call To Patient/Provider Brief (5-10min) [id number] 05/04 BARBARA RAGLAND [facility] Non-Physician Phone Call To Patient/Provider Brief (5-10min) Non-Physician Phone Call To Patient/Provider Brief (5-10min) 71505 12/28 JACQUELINE KRISHNAMURTHY [facility] Acupunct One Or More [place] W/O Stimulation Initial 15 Min Acupunct One Or More [place] W/O Stimulation Initial 15 Min [id number] 12/28 WILLOW GRECO [facility] Health And Behavior Intervention, Each 15 Minutes Individual Health And Behavior Intervention, Each 15 Minutes Individual 99623 12/02 MAGI MULLIGAN [facility] Health And Behav A e mt Each 15 Min Initial A e ment Health And Behav Assessmt Each 15 Min Initial Assessment 11789 12/02 MAGI MULLIGAN [facility] Screening papanicolaou smear; obtaining, preparing and conveyance of cervical or vaginal smear to laboratory 11/14 EFRAÍN ALMANZAR [facility] Obstetrical Services Care Visit Obstetrical Services Care Visit 0503F 07/20 SAMPSON BARRY [facility] Non-Physician Phone Call To Patient/Provider Brief (5-10min) Non-Physician Phone Call To Patient/Provider Brief (5-10min) [id number] 06/18 HARVINDER AYALA [facility] Obstetrical Services Care Visit Obstetrical Services Care Visit 0503F 06/10 SAMPSON BARRY [facility] A e ment & Intervention Blood Pre ure Measured Assessment & Intervention Blood Pressure Measured 200006/09 CATHERINE DUFFY Non-Stre Test (___ 0,2) Non-Stress Test (___ 0,2) 67818 06/01 POLI TREVIÑO [facility] OB Services Antepartum Care Only Subsequent Single Visit OB Services Antepartum Care Only Subsequent Single Visit 0502F 05/27 CATHERINE DUFFY OB Services Antepartum Care Only Subsequent Single Visit OB Services Antepartum Care Only Subsequent Single Visit 0502F 05/25 ASHTYN FRENCH [facility] Non-Physician Phone Call To Pt/Provider Intermed (11-20 min) Non-Physician Phone Call To Pt/Provider Intermed (11-20 min) 45010 04/30 HEIDI RODRIGUEZ [facility] Non-Physician Phone Call To Pt/Provider Intermed (11-20 min) Non-Physician Phone Call To Pt/Provider Intermed (11-20 min) [id number] 04/28 HEIDI RODRIGUEZ [facility] OB Services Antepartum Care Only Subsequent Single Visit OB Services Antepartum Care Only Subsequent Single Visit 0502F 04/27 FRANCO SCHMIDT [facility] OB Services Antepartum Care Only Subsequent Single Visit OB Services Antepartum Care Only Subsequent Single Visit 0502F 03/23 GRETEL GALICIA [facility] OB Services Antepartum Care Only Subsequent Single Visit OB Services Antepartum Care Only Subsequent Single Visit 0502F 02/25 JHONNY SAMPSON CASSI [facility] OB Services Antepartum Care Only Subsequent Single Visit OB Services Antepartum Care Only Subsequent Single Visit 0502F 01/28 JOSEPHINE HERNANDEZ [facility] OB Services Antepartum Care Only Subsequent Single Visit OB Services Antepartum Care Only Subsequent Single Visit 0502F 01/04 SAMPSON BARRY [facility] Ultrasound Trans[place] [address] 11/26 SAMPSON BARRY [facility] OB Services Antepartum Care Only First Visit, With Report OB Services Antepartum Care Only First Visit, With Report 0500F 11/26 JHONNY SAMPSONSHELLY YE [facility] Non-Physician Phone Call To Pt/Provider Intermed (11-20 min) Non-Physician Phone Call To Pt/Provider Intermed (11-20 min) 80668 11/23 ROCIO HOYT [facility] Ultrasound Trans[place] [address] 10/28 NICOLE CHAPARRO [facility] Non-Physician Phone Call To Pt/Provider Intermed (11-20 min) Non-Physician Phone Call To Pt/Provider Intermed (11-20 min) 77846 10/21 STEVE VILLAGRAN [facility] Physical Therapy: ___ Se ion Segments, 15 Minutes Each Physical Therapy: ___ Session Segments, 15 Minutes Each 89983 01/09 CELIA MENDOZA [facility] Physical Therapy: ___ Se ion Segments, 15 Minutes Each Physical Therapy: ___ Session Segments, 15 Minutes Each 52708 01/06 CHI JARAMILLO [facility] Modalities Cryotherapy Cold Packs Modalities Cryotherapy Cold Packs 20389 01/03 FARSHAD LARA [facility] Osteopathic Manip Treatment (OMT) 1-2 Body Regions Involved Osteopathic Manip Treatment (OMT) 1-2 Body Regions Involved 22332 01/03 FARSHAD LARA Exercises A isted Exercises For ROM Exercises Assisted Exercises For ROM 63295 01/03 FARSHAD LARA [facility] Physical Medicine Physical Therapy Evaluation Physical Medicine Physical Therapy Evaluation 13288 01/03 FARSHAD LARA Osteopathic Manip Treatment (OMT) 1-2 Body Regions Involved Osteopathic Manip Treatment (OMT) 1-2 Body Regions Involved 59004 12/24 KRYSTINA WEST [facility] Obstetrical Services Care Visit Obstetrical Services Care Visit 0503F 01/03 GRETEL GALICIA [facility] OB Services Antepartum Care Only Subsequent Single Visit OB Services Antepartum Care Only Subsequent Single Visit 0502F 11/16 CESAR CHANA Marely [facility] OB Services Antepartum Care Only Subsequent Single Visit OB Services Antepartum Care Only Subsequent Single Visit 0502F 10/12 RIPEMA CORONEL [facility] OB Services Antepartum Care Only Subsequent Single Visit OB Services Antepartum Care Only Subsequent Single Visit 0502F 09/21 RIP, EMA Kacie [facility] OB Services Antepartum Care Only Subsequent Single Visit OB Services Antepartum Care Only Subsequent Single Visit 0502F 09/04 RIPSADE CORONELBETH Kacie [facility] OB Services Antepartum Care Only Subsequent Single Visit OB Services Antepartum Care Only Subsequent Single Visit 0502F 07/12 STEVE LEW [facility] Ultrasound Trans[place] [address] 07/12 LOUANN STEVE [facility] OB Services Antepartum Care Only Subsequent Single Visit OB Services Antepartum Care Only Subsequent Single Visit 0502F 06/28 CASE, GRETEL Hester [facility] Non-Stre Test (___ 0,2) Non-Stress Test (___ 0,2) 39918 05/11 JOSEPHINE HERNANDEZ [facility] OB Services Antepartum Care Only First Visit, With Report OB Services Antepartum Care Only First Visit, With Report 0500F 05/11 JOSEPHINE HERNANDEZ [facility] Non-Physician Phone Call To Pt/Provider Intermed (11-20 min) Non-Physician Phone Call To Pt/Provider Intermed (11-20 min) 85738 04/06 SAWYER KIRKLAND Non-Physician Phone Call To Pt/Provider Lengthy (21-30 min) Non-Physician Phone Call To Pt/Provider Lengthy (21-30 min) 97195 04/05 SAWYER KIRKLAND Non-Physician Phone Call To Pt/Provider Lengthy (21-30 min) Non-Physician Phone Call To Pt/Provider Lengthy (21-30 min) 83203 03/06 SAWYER KIRKLAND Hysterosalpingography With Catheter Contrast Injection Hysterosalpingography With Catheter Contrast Injection 58922 06/17 HAL VILLELA [facility] Trans-Vaginal Ultrasound Trans-Vaginal Ultrasound 18808 05/27 HAL VILLELA Cervical or vaginal cancer screening; pelvic and clinical breast examination 02/25 GOOD REY [facility] Wet glenn, including preparations of vaginal, cervical or skin specimens 07/16 ROLLY BOYKIN [facility] Screening papanicolaou smear; obtaining, preparing and conveyance of cervical or vaginal smear to laboratory 07/16 ROLLY BOYKIN Non-Physician Phone Call To Pt/Provider Intermed (11-20 min) Non-Physician Phone Call To Pt/Provider Intermed (11-20 min) 31832 MARC JOSHI [facility] Non-Physician Phone Call To Patient/Provider Brief (5-10min) Non-Physician Phone Call To Patient/Provider Brief (5-10min) 32657 MARC JOSHI [facility] Medical Nutrition Therapy Initial A e ment, Intervention Medical Nutrition Therapy Initial Assessment, Intervention 78090 HUY YOUNG [facility] Waiver services; not otherwise specified (NOS) HUY YOUNG [facility] Osteopathic Manip Treatment (OMT) 3-4 Body Regions Involved Osteopathic Manip Treatment (OMT) 3-4 Body Regions Involved 94037 DENITA ZIEGLER [facility] Health And Behav A e mt Each 15 Min Initial A e ment Health And Behav Assessmt Each 15 Min Initial Assessment 99249 WILLIE PIPER [facility] Incision And Drainage Of Skin Absce Incision And Drainage Of Skin Abscess 01503 STEFANIE SHOOK [facility] Excision Of Lesion Trunk Benign .6 to 1cm Excision Of Lesion Trunk Benign .6 to 1cm 33829 STEFANIE SHOOK Endometrial Biopsy By Suction Endometrial Biopsy By Suction 47845 SONALI THOMAS [facility] Holter Monitor Holter Monitor 73988 [place] [facility] Patient ECG Event Recording - Transmi ion, Download, Analysis Patient ECG Event Recording - Transmission, Download, Analysis [id number] MARIO ALBERTO STONE [facility] DIRECTOR PATIENT PAT AND,WHEN PERFORM,AUTO ACT ELECTROCARDIOGRAPHIC RHYTHM DERIVED EVENT RECORDING W SYMPT-RELAT MEMORY LOOP W REMOTE DOWNLOAD CAPABILITY UP TO 30 DAYS,24-HOUR ATTENDED MONITOR;TRANSMISS & ANAL 03/23 DoD WET GLENN, INCLUDING PREPARATIONS OF VAGINAL, CERVICAL OR SKIN SPECIMENS 07/10 DoD ULTRASOUND, UTERUS, REAL TIME WITH IMAGE DOCUMENTATION, LIMITED (EG, HEART BEAT, PLACENTAL LOCATION, POSITION AND/OR QUALITATIVE AMNIOTIC FLUID VOLUME), 1 OR MORE FETUSES 03/26 DoD TELE ASSESS & MGT SRV PROV QUAL NONPHYS HLTH CARE PRO TO EST PAT,PARENT,GUARD NOT ORIG REL ASSESS & MGT SRV PROV W/IN PREV 7 DAYS NOR LEAD ASSESS & MGT SRV/PX W/IN NXT 24 HR/SOON APT;5-10 MIN MED DIS 05/06 DoD TELE ASSESS & MGT SRV PROV QUAL NONPHYS HLTH CARE PRO TO EST PAT,PARENT,GUARD NOT ORIG REL ASSESS & MGT SRV PROV W/IN PREV 7 DAYS NOR LEAD ASSESS & MGT SRV/PX W/IN NXT 24 HR/SOON APT;5-10 MIN MED DIS 05/04 DoD ACUPUNCTURE, 1 OR MORE NEEDLES; WITHOUT ELECTRICAL STIMULATION, INITIAL 15 MINUTES OF PERSONAL ONE-ON-ONE CONTACT WITH THE PATIENT 12/27 DoD TELE ASSESS & MGT SRV PROV QUAL NONPHYS HLTH CARE PRO TO EST PAT,PARENT,GUARD NOT ORIG REL ASSESS & MGT SRV PROV W/IN PREV 7 DAYS NOR LEAD ASSESS & MGT SRV/PX W/IN NXT 24 HR/SOON APT;5-10 MIN MED DIS 12/27 DoD BRIEF EMOTIONAL/BEHAVIORAL ASSESSMENT (EG, DEPRESSION INVENTORY, ATTENTION-DEFICIT/HYP ERACTIVITY DISORDER [ADHD] SCALE), WITH SCORING AND DOCUMENTATION, PER STANDARDIZED INSTRUMENT 11/29 DoD SCREENING PAPANICOLAOU SMEAR; OBTAINING, PREPARING AND CONVEYANCE OF CERVICAL OR VAGINAL SMEAR TO LABORATORY 11/14 DoD CARE VISIT () 07/20 DoD TELE ASSESS & MGT SRV PROV QUAL NONPHYS HLTH CARE PRO TO EST PAT,PARENT,GUARD NOT ORIG REL ASSESS & MGT SRV PROV W/IN PREV 7 DAYS NOR LEAD ASSESS & MGT SRV/PX W/IN NXT 24 HR/SOON APT;5-10 MIN MED DIS 06/18 DoD CARE VISIT () 06/10 DoD BLOOD PRESSURE MEASURED (CKD)(DM) 06/04 DoD INSERTION OF MONITORING ELECTRODE INTO PRODUCTS OF CONCEPTION, VIA NATURAL OR ARTIFICIAL OPENING 06/01 [facility] REPAIR FEMALE PERINEUM, EXTERNAL APPROACH 06/01 [facility] DELIVERY OF PRODUCTS OF CONCEPTION, EXTERNAL APPROACH 06/01 [facility] MONITORING OF PRODUCTS OF CONCEPTION, CARDIAC RATE, VIA NATURAL OR ARTIFICIAL OPENING 06/01 [facility] INTRODUCTION OF OTHER THERAPEUTIC SUBSTANCE INTO PERIPHERAL VEIN, PERCUTANEOUS APPROACH 06/01 DoD POSTOPERATIVE FOLLOW-UP VISIT, NORMALLY INCLUDED IN THE SURGICAL PACKAGE, INDICATE THAT EVALUATION & MANAGEMENT SERVICE WAS PERFORMED DURING A POSTOPERATIVE PERIOD REASON RELATED ORIGINAL PROCEDURE 05/31 DoD POSTOPERATIVE FOLLOW-UP VISIT, NORMALLY INCLUDED IN THE SURGICAL PACKAGE, INDICATE THAT EVALUATION & MANAGEMENT SERVICE WAS PERFORMED DURING A POSTOPERATIVE PERIOD REASON RELATED ORIGINAL PROCEDURE 05/30 [facility] VAGINAL DELIVERY ONLY (WITH OR WITHOUT EPISIOTOMY AND/OR FORCEPS); 05/29 [facility] NON-STRESS TEST 05/29 [facility] SUBSEQ CARE VISIT () [EXCLS:PATIENTS WHO ARE SEEN FOR A CONDITION UNREL TO / CARE (EG,AN UP RESPIR INFECT;PATIENTS SEEN FOR CONSULTATION ONLY,NOT FOR CONT CARE)] 05/27 DoD SUBSEQ CARE VISIT () [EXCLS:PATIENTS WHO ARE SEEN FOR A CONDITION UNREL TO / CARE (EG,AN UP RESPIR INFECT;PATIENTS SEEN FOR CONSULTATION ONLY,NOT FOR CONT CARE)] 05/25 DoD TELE ASSESS & MGT SRV PROV QUAL NONPHYS HLTH CARE PRO TO EST PAT,PARENT,GUARD NOT ORIG REL ASSESS & MGT SRV PROV W/IN PREV 7 DAYS NOR LEAD ASSESS & MGT SRV/PX W/IN NXT 24H/SOON APT; 11-20 MIN MED DIS 04/30 DoD TELE ASSESS & MGT SRV PROV QUAL NONPHYS HLTH CARE PRO TO EST PAT,PARENT,GUARD NOT ORIG REL ASSESS & MGT SRV PROV W/IN PREV 7 DAYS NOR LEAD ASSESS & MGT SRV/PX W/IN NXT 24H/SOON APT; 11-20 MIN MED DIS 04/27 DoD SUBSEQ CARE VISIT () [EXCLS:PATIENTS WHO ARE SEEN FOR A CONDITION UNREL TO / CARE (EG,AN UP RESPIR INFECT;PATIENTS SEEN FOR CONSULTATION ONLY,NOT FOR CONT CARE)] 04/27 DoD SUBSEQ CARE VISIT () [EXCLS:PATIENTS WHO ARE SEEN FOR A CONDITION UNREL TO / CARE (EG,AN UP RESPIR INFECT;PATIENTS SEEN FOR CONSULTATION ONLY,NOT FOR CONT CARE)] 03/23 DoD SUBSEQ CARE VISIT () [EXCLS:PATIENTS WHO ARE SEEN FOR A CONDITION UNREL TO / CARE (EG,AN UP RESPIR INFECT;PATIENTS SEEN FOR CONSULTATION ONLY,NOT FOR CONT CARE)] 02/25 DoD SUBSEQ CARE VISIT () [EXCLS:PATIENTS WHO ARE SEEN FOR A CONDITION UNREL TO / CARE (EG,AN UP RESPIR INFECT;PATIENTS SEEN FOR CONSULTATION ONLY,NOT FOR CONT CARE)] 01/28 DoD SUBSEQ CARE VISIT () [EXCLS:PATIENTS WHO ARE SEEN FOR A CONDITION UNREL TO / CARE (EG,AN UP RESPIR INFECT;PATIENTS SEEN FOR CONSULTATION ONLY,NOT FOR CONT CARE)] 01/04 DoD ULTRASOUND, UTERUS, REAL TIME WITH IMAGE DOCUMENTATION,TRANSVA GINAL 11/26 DoD TELE ASSESS & MGT SRV PROV QUAL NONPHYS HLTH CARE PRO TO EST PAT,PARENT,GUARD NOT ORIG REL ASSESS & MGT SRV PROV W/IN PREV 7 DAYS NOR LEAD ASSESS & MGT SRV/PX W/IN NXT 24H/SOON APT; 11-20 MIN MED DIS 11/23 DoD ULTRASOUND, UTERUS, REAL TIME WITH IMAGE DOCUMENTATION,TRANSVA GINAL 10/28 DoD TELE ASSESS & MGT SRV PROV QUAL NONPHYS HLTH CARE PRO TO EST PAT,PARENT,GUARD NOT ORIG REL ASSESS & MGT SRV PROV W/IN PREV 7 DAYS NOR LEAD ASSESS & MGT SRV/PX W/IN NXT 24H/SOON APT; 11-20 MIN MED DIS 10/21 DoD THERAPEUTIC PROCEDURE, 1 OR MORE AREAS, EACH 15 MINUTES; THERAPEUTIC EXERCISES TO DEVELOP STRENGTH AND ENDURANCE, RANGE OF MOTION AND FLEXIBILITY 01/09 DoD THERAPEUTIC PROCEDURE, 1 OR MORE AREAS, EACH 15 MINUTES; THERAPEUTIC EXERCISES TO DEVELOP STRENGTH AND ENDURANCE, RANGE OF MOTION AND FLEXIBILITY 01/06 [facility] APPLICATION OF A MODALITY TO 1 OR MORE AREAS; HOT OR COLD PACKS 01/02 DoD OSTEOPATHIC MANIPULATIVE TREATMENT (OMT); 1-2 BODY REGIONS INVOLVED 12/24 DoD CARE VISIT () 01/03 [facility] MANUAL REMOVAL OF RETAINED PLACENTA 11/24 DoD REPAIR OF OTHER CURRENT OBSTETRIC LACERATION 11/24 DoD POSTOPERATIVE FOLLOW-UP VISIT, NORMALLY INCLUDED IN THE SURGICAL PACKAGE, INDICATE THAT EVALUATION & MANAGEMENT SERVICE WAS PERFORMED DURING A POSTOPERATIVE PERIOD REASON RELATED ORIGINAL PROCEDURE 11/24 [facility] POSTOPERATIVE FOLLOW-UP VISIT, NORMALLY INCLUDED IN THE SURGICAL PACKAGE, INDICATE THAT EVALUATION & MANAGEMENT SERVICE WAS PERFORMED DURING A POSTOPERATIVE PERIOD REASON RELATED ORIGINAL PROCEDURE 11/23 [facility] VAGINAL DELIVERY ONLY (WITH OR WITHOUT EPISIOTOMY AND/OR FORCEPS); 11/22 [facility] SUBSEQ CARE VISIT () [EXCLS:PATIENTS WHO ARE SEEN FOR A CONDITION UNREL TO / CARE (EG,AN UP RESPIR INFECT;PATIENTS SEEN FOR CONSULTATION ONLY,NOT FOR CONT CARE)] 11/16 [facility] SUBSEQ CARE VISIT () [EXCLS:PATIENTS WHO ARE SEEN FOR A CONDITION UNREL TO / CARE (EG,AN UP RESPIR INFECT;PATIENTS SEEN FOR CONSULTATION ONLY,NOT FOR CONT CARE)] 10/12 [facility] SUBSEQ CARE VISIT () [EXCLS:PATIENTS WHO ARE SEEN FOR A CONDITION UNREL TO / CARE (EG,AN UP RESPIR INFECT;PATIENTS SEEN FOR CONSULTATION ONLY,NOT FOR CONT CARE)] 09/21 [facility] SUBSEQ CARE VISIT () [EXCLS:PATIENTS WHO ARE SEEN FOR A CONDITION UNREL TO / CARE (EG,AN UP RESPIR INFECT;PATIENTS SEEN FOR CONSULTATION ONLY,NOT FOR CONT CARE)] 08/31 [facility] SUBSEQ CARE VISIT () [EXCLS:PATIENTS WHO ARE SEEN FOR A CONDITION UNREL TO / CARE (EG,AN UP RESPIR INFECT;PATIENTS SEEN FOR CONSULTATION ONLY,NOT FOR CONT CARE)] 07/12 [facility] SUBSEQ CARE VISIT () [EXCLS:PATIENTS WHO ARE SEEN FOR A CONDITION UNREL TO / CARE (EG,AN UP RESPIR INFECT;PATIENTS SEEN FOR CONSULTATION ONLY,NOT FOR CONT CARE)] 06/28 [facility] NON-STRESS TEST 05/11 [facility] TELE ASSESS & MGT SRV PROV QUAL NONPHYS HLTH CARE PRO TO EST PAT,PARENT,GUARD NOT ORIG REL ASSESS & MGT SRV PROV W/IN PREV 7 DAYS NOR LEAD ASSESS & MGT SRV/PX W/IN NXT 24H/SOON APT; 11-20 MIN MED DIS 04/06 DoD TELE ASSESS & MGT SRV PROV QUAL NONPHYS HLTH CARE PRO TO EST PAT,PARENT,GUARD NOT ORIG REL ASSESS & MGT SRV PROV W/IN PREV 7 DAYS NOR LEAD ASSESS & MGT SRV/PX W/IN NXT 24H/SOON APT; 21-30 MIN MED DIS 04/05 DoD TELE ASSESS & MGT SRV PROV QUAL NONPHYS HLTH CARE PRO TO EST PAT,PARENT,GUARD NOT ORIG REL ASSESS & MGT SRV PROV W/IN PREV 7 DAYS NOR LEAD ASSESS & MGT SRV/PX W/IN NXT 24H/SOON APT; 21-30 MIN MED DIS 03/06 DoD CATHETERIZATION AND INTRODUCTION OF SALINE OR CONTRAST MATERIAL FOR SALINE INFUSION SONOHYSTEROGRAPHY (SIS) OR HYSTEROSALPINGOGRAPHY 06/17 [facility] ULTRASOUND, TRANSVAGINAL 05/27 [facility] CERVICAL OR VAGINAL CANCER SCREENING; PELVIC AND CLINICAL BREAST EXAMINATION 02/25 [facility] BUPRENORPHINE IMPLANT, 74.2 MG 01/08 [facility] SCREENING PAPANICOLAOU SMEAR; OBTAINING, PREPARING AND CONVEYANCE OF CERVICAL OR VAGINAL SMEAR TO LABORATORY 09/18 [facility] BRIEF EMOTIONAL/BEHAVIORAL ASSESSMENT (EG, DEPRESSION INVENTORY, ATTENTION-DEFICIT/HYP ERACTIVITY DISORDER [ADHD] SCALE), WITH SCORING AND DOCUMENTATION, PER STANDARDIZED INSTRUMENT 03/29 [facility] HEALTH BEHAVIOR ASSESSMENT, OR RE-ASSESSMENT (IE, HEALTH-FOCUSED CLINICAL INTERVIEW, BEHAVIORAL OBSERVATIONS, CLINICAL DECISION MAKING) 03/18 [facility] HEALTH BEHAVIOR INTERVENTION, INDIVIDUAL, [id number]; INITIAL 30 MINUTES 02/28 [facility] DIRECTOR PATIENT ELECTROCARDIOGRAPHIC RECORDING UP TO 48 HOUR,CONT RHYTHM RECORDING & STORAGE;INCLUD RECORDING,SCANNING ANAL W REPORT,REVIEW &INTERPRETATION,A PHYSICIAN/OTHER QUALIFIED HEALTH EXECUTIVE DIRECTOR OF MARKETING 02/14 DoD TELE ASSESS & MGT SRV PROV QUAL NONPHYS HLTH CARE PRO TO EST PAT,PARENT,GUARD NOT ORIG REL ASSESS & MGT SRV PROV W/IN PREV 7 DAYS NOR LEAD ASSESS & MGT SRV/PX W/IN NXT 24 HR/SOON APT;5-10 MIN MED DIS 02/01 [facility] BRIEF EMOTIONAL/BEHAVIORAL ASSESSMENT (EG, DEPRESSION INVENTORY, ATTENTION-DEFICIT/HYP ERACTIVITY DISORDER [ADHD] SCALE), WITH SCORING AND DOCUMENTATION, PER STANDARDIZED INSTRUMENT 01/18 [facility] HEALTH BEHAVIOR INTERVENTION, INDIVIDUAL, [id number]; INITIAL 30 MINUTES 01/10 [facility] ELECTROCARDIOGRAM, ROUTINE ECG WITH AT LEAST 12 LEADS; WITH INTERPRETATION AND REPORT 12/27 [facility] BRIEF EMOTIONAL/BEHAVIORAL ASSESSMENT (EG, DEPRESSION INVENTORY, ATTENTION-DEFICIT/HYP ERACTIVITY DISORDER [ADHD] SCALE), WITH SCORING AND DOCUMENTATION, PER STANDARDIZED INSTRUMENT 12/24 [facility] BRIEF EMOTIONAL/BEHAVIORAL ASSESSMENT (EG, DEPRESSION INVENTORY, ATTENTION-DEFICIT/HYP ERACTIVITY DISORDER [ADHD] SCALE), WITH SCORING AND DOCUMENTATION, PER STANDARDIZED INSTRUMENT 11/22 [facility] SCREENING PAPANICOLAOU SMEAR; OBTAINING, PREPARING AND CONVEYANCE OF CERVICAL OR VAGINAL SMEAR TO LABORATORY 11/05 [facility] BRIEF EMOTIONAL/BEHAVIORAL ASSESSMENT (EG, DEPRESSION INVENTORY, ATTENTION-DEFICIT/HYP ERACTIVITY DISORDER [ADHD] SCALE), WITH SCORING AND DOCUMENTATION, PER STANDARDIZED INSTRUMENT 10/21 [facility] EXCISION, BENIGN LESION INCLUDING MARGINS, EXCEPT SKIN TAG (UNLESS LISTED ELSEWHERE), TRUNK, ARMS OR LEGS; EXCISED DIAMETER 0.6 TO 1.0 CM 10/07 DoD BRIEF EMOTIONAL/BEHAVIORAL ASSESSMENT (EG, DEPRESSION INVENTORY, ATTENTION-DEFICIT/HYP ERACTIVITY DISORDER [ADHD] SCALE), WITH SCORING AND DOCUMENTATION, PER STANDARDIZED INSTRUMENT 09/01 DoD BRIEF EMOTIONAL/BEHAVIORAL ASSESSMENT (EG, DEPRESSION INVENTORY, ATTENTION-DEFICIT/HYP ERACTIVITY DISORDER [ADHD] SCALE), WITH SCORING AND DOCUMENTATION, PER STANDARDIZED INSTRUMENT 08/30 [facility] WAIVER SERVICES; NOT OTHERWISE SPECIFIED (NOS) 07/29 [facility] BRIEF EMOTIONAL/BEHAVIORAL ASSESSMENT (EG, DEPRESSION INVENTORY, ATTENTION-DEFICIT/HYP ERACTIVITY DISORDER [ADHD] SCALE), WITH SCORING AND DOCUMENTATION, PER STANDARDIZED INSTRUMENT 07/26 DoD INCISION AND DRAINAGE OF ABSCESS (EG, CARBUNCLE, SUPPURATIVE HIDRADENITIS, CUTANEOUS OR SUBCUTANEOUS ABSCESS, CYST, FURUNCLE, OR PARONYCHIA); SIMPLE OR SINGLE 07/20 DoD BRIEF EMOTIONAL/BEHAVIORAL ASSESSMENT (EG, DEPRESSION INVENTORY, ATTENTION-DEFICIT/HYP ERACTIVITY DISORDER [ADHD] SCALE), WITH SCORING AND DOCUMENTATION, PER STANDARDIZED INSTRUMENT 07/19 DoD TELE ASSESS & MGT SRV PROV QUAL NONPHYS HLTH CARE PRO TO EST PAT,PARENT,GUARD NOT ORIG REL ASSESS & MGT SRV PROV W/IN PREV 7 DAYS NOR LEAD ASSESS & MGT SRV/PX W/IN NXT 24H/SOON APT; 11-20 MIN MED DIS 07/14 DoD OSTEOPATHIC MANIPULATIVE TREATMENT (OMT); 3-4 BODY REGIONS INVOLVED 06/24 DoD WAIVER SERVICES; NOT OTHERWISE SPECIFIED (NOS) 06/21 DoD TELE ASSESS & MGT SRV PROV QUAL NONPHYS HLTH CARE PRO TO EST PAT,PARENT,GUARD NOT ORIG REL ASSESS & MGT SRV PROV W/IN PREV 7 DAYS NOR LEAD ASSESS & MGT SRV/PX W/IN NXT 24H/SOON APT; 11-20 MIN MED DIS 06/07 DoD WAIVER SERVICES; NOT OTHERWISE SPECIFIED (NOS) 06/04 DoD TELE ASSESS & MGT SRV PROV QUAL NONPHYS HLTH CARE PRO TO EST PAT,PARENT,GUARD NOT ORIG REL ASSESS & MGT SRV PROV W/IN PREV 7 DAYS NOR LEAD ASSESS & MGT SRV/PX W/IN NXT 24H/SOON APT; 11-20 MIN MED DIS 06/04 DoD OSTEOPATHIC MANIPULATIVE TREATMENT (OMT); 3-4 BODY REGIONS INVOLVED 05/13 DoD OSTEOPATHIC MANIPULATIVE TREATMENT (OMT); 3-4 BODY REGIONS INVOLVED 04/22 DoD TELE ASSESS & MGT SRV PROV QUAL NONPHYS HLTH CARE PRO TO EST PAT,PARENT,GUARD NOT ORIG REL ASSESS & MGT SRV PROV W/IN PREV 7 DAYS NOR LEAD ASSESS & MGT SRV/PX W/IN NXT 24 HR/SOON APT;5-10 MIN MED DIS 04/06 DoD COLLECTION OF VENOUS BLOOD BY VENIPUNCTURE 04/03 DoD WAIVER SERVICES; NOT OTHERWISE SPECIFIED (NOS) 11/18 DoD TELE ASSESS & MGT SRV PROV QUAL NONPHYS HLTH CARE PRO TO EST PAT,PARENT,GUARD NOT ORIG REL ASSESS & MGT SRV PROV W/IN PREV 7 DAYS NOR LEAD ASSESS & MGT SRV/PX W/IN NXT 24 HR/SOON APT;5-10 MIN MED DIS 10/01 DoD COLLECTION OF VENOUS BLOOD BY VENIPUNCTURE 09/24 DoD TELE ASSESS & MGT SRV PROV QUAL NONPHYS HLTH CARE PRO TO EST PAT,PARENT,GUARD NOT ORIG REL ASSESS & MGT SRV PROV W/IN PREV 7 DAYS NOR LEAD ASSESS & MGT SRV/PX W/IN NXT 24H/SOON APT; 11-20 MIN MED DIS 09/01 [facility] 5% DEXTROSE/WATER (500 ML = 1 UNIT) 08/15 DoD Social History Combined list of available smoking, tobacco, and other social history from [facility] facilities. Social History Type Response Date Comment Sourc e Sex Representation Female (finding) 11/08/2022 Unknown Organization Sexual Orientation [facility] Gender identity [facility] This section is an empty social history section. [facility] Assessment and Plan Combined list of future care activities from [facility] facilities (e.g., assessment and plan notes, appointments, orders, and referrals). Additional future care activities may be listed in the Plan of Care section. Result Assessment and Plan Date Source Assessment and Plan Extracted from:Title : Anxiety, heart murmur f/u Author: DENITA ZIEGLER MD Date: 12/20/23 1. A nxiety - Was on zoloft before but now doing well with lexapro 10mg daily for the past 1.5 yrs. She was stressed from moving here and starting a new job but has been stable. initially saw Dr Piper in [facility] but has not seen a specialist at all since summer. - she is considering coming off medication but would like to wait and re-evaluate after upcoming PCS next month 2. H eart murmur - mild, benign, not relating to symptoms of dizziness. Her dizziness does not occur now that she focusing on eating regular meals and staying hydrated. No problem with exercise- is a runner. - no f/u needed with specialist -emailed [facility] office ---This note was partly created using dictation software. All attempts were made to edit but some e rrors may have been missed--- Denita Ziegler D.O. Family Medicine Physician, , [facility] 03/20/2025 [id number] Functional Status Combined list of recent functional and cognitive assessments recorded at [facility] ([place] Functional [place] Measurement (FIM) Scale: 1 = Total Assistance (Subject = 0% +), 2 = Maximal Assistance (Subject = 25% +), 3 = Moderate Assistance (Subject = 50% +), 4 = Minimal Assistance (Subject = 75% +), 5 = Supervision, 6 = Modified [place] (Device), 7 = Complete [place] (Timely, Safely). Assessment Date/Time Source Assessment Type Assessment Skill Assessment Score Assessment Details No data available for this section
[2025-03-20 09:21] VITALS: BP 117/68; PULSE 76; TEMP 36.9; O2SAT 98; BMI 32.9
--- NOTE | 2025-03-20 09:21 | MHC.OFFWIV ---
Intake Vital Signs 03/20/25 09:21 Height 5 ft 5 in Weight 198 lb BMI 32.9 BP 117/68 Blood Pressure Location Rt brachial Position Sitting Pulse 76 Pulse Source Pulse Oximeter Temp 98.4 F Temp Source Oral Pulse Oximetry (%) 98 Oxygen Delivery Method Room Air Intake Visit Reasons: EP Itching all over Patient Tobacco Use Status: Never used Tobacco Machine Bunch Maker Required: No Is last menstrual period known: Yes Last menstrual period: 02/24/25 Post menopausal: No Patient : No Allergies Sulfa (Sulfonamide Antibiotics) Allergy (Unknown, Verified 03/20/25 09:25) Hives HPI HPI Comments History of Present Illness Details History - The patient is a 39-year-old female presenting with pruritus. - Severe itching began a few days ago, affecting chest, arms, and legs. - No recent sun exposure; new laundry detergent used weeks ago. - Increased physical activity with twice daily showers; rash not in gym contact areas. - Current medications include Lexapro and an oral antifungal. - Also taking terbinafine x 5 weeks liver labs tad elevated at baseline and 1 month in. Physical Exam General: Cooperative, healthy appearing, comfortable, no acute distress and well developed Orientation: Patient oriented x3 Limitations: No limitations Head: Normal to inspection Ears: Hearing grossly normal bilaterally Nose: Normal External nose present Face and sinus: Normal facial exam Mouth: normal, moist oral mucosa Eyes: Appearance normal, both eyes and all related structures Neck: Normal visual inspection and Yes full ROM Respiratory: Normal respiratory effort and able to speak in complete sentences. Skin: mild pinpoint erythematous rash noted on upper chest, scant on arms Neuro: Patient oriented x3 Extremities: moving all extremities normally [facility] Medical History (Updated 03/20/25 @ 09:40 by Meg Manuel PA-C) Family history of Estevez syndrome Iron deficiency Family history of melanoma Anxiety Endometriosis Cancer of skin of right leg Heart palpitations ADHD Surgical History (Updated 06/11/24 @ 11:40 by SILVIANO Velásquez) [place] teeth removed H/O removal of cyst Family History (Updated 06/11/24 @ 10:57 by Candie An CMA) Mother ADHD Anxiety Skin cancer Maternal Aunt Skin cancer Father Type 2 diabetes mellitus Gout Other FH: mental illness Social History Housing: House Patient Tobacco Use Status: Never used Tobacco e-Cigarette/Vaping Use: Never Used Second Hand Smoke Exposure: No Patient : No service: No Current occupational status: employed 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 Current occupational exposures/hazards: No Cognitive needs: No Hearing needs: No Vision needs: No Female Reproductive History Menstrual Date of last menstrual period: 02/24/25 Review of Systems Const All systems reviewed & are unremarkable except as noted in HPI and below Physical Exam Vital Signs: Last Vital Signs Temp 98.4 F 03/20/25 09:21 Pulse 76 03/20/25 09:21 BP 117/68 03/20/25 09:21 Pulse Ox 98 03/20/25 09:21 Oxygen Delivery Method Room Air 03/20/25 09:21 BMI result Body Mass Index 32.9 Assessment & Plan Assessment & Plan (1) Contact dermatitis: Code(s): L25.9 - Unspecified contact dermatitis, unspecified cause Qualifiers: Contact dermatitis type: allergic Contact dermatitis trigger: unspecified trigger Qualified Code(s): L23.9 - Allergic contact dermatitis, unspecified cause Plan: Plan Patient was informed and verbally consented to the use of an ambient scribe for clinic note documentation during this visit 1. Contact Dermatitis - Prescribed prednisone for inflammation. - Provided steroid cream for topical use. - Recommended Benadryl for nighttime itching. - Advised possible laundry detergent, switch to mild, hypoallergenic Medications: New prednisone 40 mg (2 x 20 mg) PO QAM 10 tabs 0RF triamcinolone acetonide 0.1% 1 appl topical BID 80 grams 0RF Coding Level of Care Code Est Pt Level 3 (53129) Diagnoses Allergic contact dermatitis, unspecified trigger L23.9 Contact dermatitis type: allergic Contact dermatitis trigger: unspecified trigger
== END 2025-03-20 10:12 | disposition home or self-care (01) ==
PROVIDERS: PCP Physician Assistant Medical; Visit Provider Physician Assistant
DX: L23.9 Allergic contact dermatitis, unspecified cause (principal)

== ENCOUNTER → 2025-03-20 08:34 | Outpatient (BNVA) | payer OTHER, SELFPAY | PROVIDERS: PCP Physician Assistant Medical; Visit Provider Physician Assistant | DX: L23.9 Allergic contact dermatitis, unspecified cause (principal) | CPT/HCPCS: 99212 ==

== ENCOUNTER 2025-05-09 15:53 | Outpatient (AMB) | payer OTHER, SELFPAY ==
--- NOTE | 2025-05-09 15:48 | A.OFFPC_ITS ---
Intake Visit Reasons: MEDICATION Intake Note: Paulina presents in the office today for a medication check in. Allergies Sulfa (Sulfonamide Antibiotics) Allergy (Unknown, Verified 05/09/25 15:49) Hives terbinafine Allergy (Verified 05/09/25 15:49) Rash Tobacco use date assessed: 05/09/25 Dental Screening Dental Screen Date: 05/09/25 Did you have a dental visit in the last 12 months?: Yes Did you have a dental problem in the last 6 months where you did not have access to dental care?: No Was dental information given to patient?: Patient has dentist HPI HPI Comments History of Present Illness Details This is a 40-year-old female with a past medical history of anxiety, ADHD, endometriosis, skin cancer and iron-deficiency anemia presenting for follow up. She had 1 ER visit during the past year after she developed an allergic reaction to terbinafine. She had a whole-body rash. No respiratory symptoms. Anxiety is treated with 10 mg of Lexapro. She is doing well with this. She has a lot less anxiety after moving back from the to the [facility]. Denies panic attacks. She has coping strategies, and she would like to try to taper off of this medication. Denies depression. ROS: Constitutional: No unexplained weight loss, fever, chills, fatigue or night sweats. Respiratory: No shortness of breath, cough or sputum production. Psychiatric: see HPI [facility] Medical History (Updated 05/09/25 @ 16:34 by SILVIANO Velásquez) Screening for cardiovascular condition Family history of Estevez syndrome Iron deficiency Family history of melanoma Anxiety Endometriosis Cancer of skin of right leg Heart palpitations ADHD Surgical History (Updated 06/11/24 @ 11:40 by SILVIANO Velásquez) [place] teeth removed H/O removal of cyst Family History Mother ADHD Anxiety Skin cancer Maternal Aunt Skin cancer Father Type 2 diabetes mellitus Gout Other FH: mental illness Social History (Updated 05/09/25 @ 15:51 by Lillian Chun CMA) Housing: House Alcohol intake: current Patient Tobacco Use Status: Never used Tobacco e-Cigarette/Vaping Use: Never Used Second Hand Smoke Exposure: No Use of substances other than those prescribed or required for medical reasons: No service: No Current occupational status: employed 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 Current occupational exposures/hazards: No Cognitive needs: No Hearing needs: No Vision needs: No Questionnaire Thrive Questionnaire Date Thrive assessed: 06/11/24 Physical exam (Primary Care) Tobacco/Smoking Status: Tobacco use Status Tobacco use date assessed 05/09/25 05/09/25 15:52 Patient Tobacco Use Status Never used Tobacco 05/09/25 15:52 e-Cigarette/Vaping Use Never Used 05/09/25 15:52 Thrive Assessment: Date of Thrive Assessment Date Thrive assessed 06/11/24 05/09/25 15:52 Telehealth Telehealth Telehealth Platform: Telephone Location of provider rendering services: practice address Location of patient: address on file Patient Identification confirmed using: Name, : Yes Telehealth method: voice only Patient verbally consented to treatment: Yes Patient verbally consented to billing insurance company: Yes Patient informed of any privacy concerns related to visit: Yes Minutes spent on Phone/Video with Pt.: 11 Coding Level of Care Code Tele Est Pt Level 3 (58057) Diagnoses Anxiety F41.9 Assessment & Plan Assessment & Plan (1) Anxiety: Code(s): F41.9 - Anxiety disorder, unspecified Category: Medical Plan She would like to try tapering off of the medication. Provided with instructions and new prescription for this. If she develops increased anxiety or discontinuation symptoms she will contact the office. She has a follow up appointment with me for a physical in June for a recheck. Orders: Orders IRON PROFILE Today D64.9 - Anemia, unspecified, E61.1 - Iron deficiency, F41.9 - Anxiety disorder, unspecified, Z13.6 - Encounter for screening for cardiovascular disorders Complete Blood Count no Diff Today E61.1 - Iron deficiency, F41.9 - Anxiety d isorder, unspecified, Z13.6 - Encounter for screening for cardiovascular disorders Comprehensive Met. Panel Today E61.1 - Iron deficiency, F41.9 - Anxiety disorder, unspecified, Z13.6 - Encounter for screening for cardiovascular disorders TSH reflex Free T4 Today E61.1 - Iron deficiency, F41.9 - Anxiety disorder, unspecified, Z13.6 - Encounter for screening for cardiovascular disorders Lipid Panel Today E61.1 - Iron deficiency, F41.9 - Anxiety disorder, unspecified, Z13.6 - Encounter for screening for cardiovascular disorders Ferritin Today D64.9 - Anemia, unspecified, E61.1 - Iron deficiency, F41.9 - Anxiety disorder, unspecified, Z13.6 - Encounter for screening for cardiovascular disorders Medications: New escitalopram oxalate (Lexapro) Alternate 5 and 10 mg daily for 2 weeks, then decrease to 5 mg daily for 2 weeks, then decrease to 2.5 mg daily for 2 weeks then stop. 5 mg PO DAILY 60 tabs 0RF
== END 2025-05-09 17:29 | disposition home or self-care (01) ==
LOC: HO.HMCFM 15:53
PROVIDERS: PCP Physician Assistant Medical; Visit Provider Physician Assistant Medical
DX: F41.9 Anxiety disorder, unspecified (principal)

== ENCOUNTER 2025-06-27 09:51 | Outpatient (REF) | payer OTHER, SELFPAY ==
[2025-06-27 13:22] LABS: Hematocrit 35.3 % (37.0-47.0); Hemoglobin 11.1 g/dl (12.0-16.0); Mean Corpuscular HGB Conc 31.4 g/dl (31.0-35.0); Mean Corpuscular Hemoglobin 26.6 pg (27.0-33.0); Mean Corpuscular Volume 84.7 fL (80.0-98.0); NRBC Abs Auto 0.000 X10*3/uL (0.0-0.012); NRBC Pct Auto 0.0 /100WBC (0.0-0.2); Platelet Count 398 X10*3/uL (160-400); Red Blood Count 4.17 X10*6/uL (4.20-5.50); White Blood Count 4.8 X10*3/uL (4.8-10.8)
[2025-06-27 14:00] LABS: Alanine Aminotransferase 22 U/L (0-31); Albumin Level 4.7 g/dL (3.5-5.0); Alkaline Phosphatase 87 U/L (39-117); Anion Gap 10 (12-20); Aspartate Amino Transferase 26 U/L (5-31); Blood Urea Nitrogen 9 mg/dL (9-16); Calcium 9.5 mg/dL (8.4-10.2); Carbon Dioxide 27 mmol/L (22-29); Chloride 107 mmol/L (96-108); Cholesterol 264 mg/dL (<200); Estimated Glomerular Filt Rate > 60; HDL Cholesterol 59 mg/dL (>40); Iron 65 mcg/dL (30-160); Percent Iron Saturation 17 % (15-50); Potassium 4.3 mmol/L (3.3-5.1); Sodium 140 mmol/L (135-145); Total Iron Binding Capacity 379 mcg/dL (228-428); Total Protein 7.5 g/dL (6.5-8.0); Triglycerides 167 mg/dL (<150); Unsaturated Iron Binding 314 ug/dL
[2025-06-27 14:02] LABS: Ferritin 11 ng/mL (10-250)
== END 2025-06-27 09:52 | disposition home or self-care (01) ==
LOC: HO.HMGCLDS 09:51
PROVIDERS: PCP Physician Assistant Medical; Visit Provider Physician Assistant Medical
DX: Z13.6 Encounter for screening for cardiovascular disorders (principal); D64.9 Anemia, unspecified; E61.1 Iron deficiency; F41.9 Anxiety disorder, unspecified
CPT/HCPCS: 36415; 80053; 80061; 82728; 83540; 84443; 85027